=== PATIENT | male | born 1955 | race Caucasian/White ===

== ENCOUNTER 2020-01-19 12:36 | Inpatient (IN) | payer MEDICARE, OTHER ==
[~2020-01-19] VITALS: Ht 175.3 cm; Wt 94.8 kg
[2020-01-19] MEDS ORDERED: HYDR-4384 PO (13:05)
[2020-01-19] MEDS ORDERED: AMLO5TAB9 PO (13:05)
[2020-01-19] MEDS ORDERED: THIA100T74 PO (13:05)
--- NOTE | 2020-01-19 13:12 | NUR ---
Called report to KIRSTEN Bauman in [facility].
--- NOTE | 2020-01-19 14:00 | NUR ---
Admitted a 64 years old patient from ER with suicidal ideation,per report patient called suicide hotline and stated that he want to kill himself with a knife .during face to face interview ,patient is A/O x4 s/p fall last week at home and with dislocated shoulder.patient denies any suicidal ideation now ,he said due to the dislocated shoulder he was in so much pain and called stated that he had SI.patient remains depressed and feels hopeless want looking for help to control shoulder pain.patient able to ambulating and self care.
[2020-01-19] MEDS ORDERED: MAGNESIUM HYDROXIDE 30 ML LIQUID UDC PO PRN (14:15)
[2020-01-19] MEDS ORDERED: BLOOD SUGAR DIAGNOSTIC 1 EACH STRIP VI ONE ×2 (14:15)
[2020-01-19] MEDS ORDERED: CLONAZEPAM 0.5 MG TABLET PO PRN (14:15)
[2020-01-19] MEDS ORDERED: MAG HYDROX/AL HYDROX/SIMETH 30 ML LIQUID UDC PO PRN (14:15)
[2020-01-19] MEDS ORDERED: ACETAMINOPHEN 325 MG TABLET PO PRN (14:15)
[2020-01-19] MEDS ORDERED: TEMAZEPAM 7.5 MG CAPSULE PO PRN (14:15)
[2020-01-19 15:42] VITALS: BP 141/88
[2020-01-19 20:02] VITALS: BP 135/83
[2020-01-19] MEDS ORDERED: IBUPROFEN 200 MG TABLET PO PRN (20:45)
[2020-01-19] MEDS ORDERED: IBUPROFEN 800 MG TABLET ONE (21:44)
--- NOTE | 2020-01-19 23:04 | NUR ---
Pt c/o of R shoulder pain. Called Dr. Roa and ordered ibuprofen + XR of r shoulder. Pt asleep at this time after given ibuprofen.
[2020-01-20] MEDS: HYDROCODONE/APAP 5-325MG TABLET PO PRN ×3 (05:34→18:30)
--- NOTE | 2020-01-20 05:45 | NUR ---
c/o of skin bites in both legs, none in the upper extremities. No itching per pt. Pictures taken, see chart. Pt had shower in am.
--- NOTE | 2020-01-20 07:06 | NUR ---
Pt slept 6.30 hrs.
[2020-01-20 07:12] LABS: BASOPHILS # (AUTO) 0.1 K/uL (0.0-8.0); BASOPHILS % (AUTO) 1.3 % (0.0-2.0); EOSINOPHILS # (AUTO) 0.2 K/uL (0.0-0.7); HEMATOCRIT 41.9 % (36.7-47.1); LYMPHOCYTES % (AUTO) 35.2 % (20.5-51.5); MEAN CORPUSCULAR HEMOGLOBIN 29.3 uug (23.8-33.4); MEAN CORPUSCULAR HGB CONC 34 g/dL (32.5-36.3); MEAN CORPUSCULAR VOLUME 87.7 fL (73.0-96.2); MONOCYTES # (AUTO) 0.5 K/uL (2.0-10.0); MONOCYTES % (AUTO) 8.7 % (0.0-11.0); NEUTROPHILS # (AUTO) 2.9 K/uL (1.8-8.9); NEUTROPHILS % (AUTO) 50.8 % (38.5-71.5); PLATELET COUNT (AUTO) 197 K/uL (152-348); RED BLOOD CELL COUNT(AUTO) 4.77 MIL/uL (4.06-5.63); WHITE BLOOD COUNT (AUTO) 5.8 K/uL (3.6-10.2)
[2020-01-20] MEDS ORDERED: IBUPROFEN 800 MG TABLET PO PRN (07:15)
[2020-01-20 07:31] LABS: BILIRUBIN,DIRECT 0.2 mg/dL (0.0-0.2); MAGNESIUM 1.9 mg/dL (1.8-2.4); PHOSPHOROUS 3.2 mg/dL (2.5-4.9); TOTAL PROTEIN, SERUM 7.3 g/dL (6.4-8.2)
[2020-01-20 07:42] VITALS: BP 161/102
[2020-01-20] MEDS: THIAMINE HCL 100 MG TABLET PO SCH (08:18)
[2020-01-20] MEDS: AMLODIPINE 5 MG TABLET PO SCH (08:19)
[2020-01-20 08:38] LABS: BILIRUBIN,TOTAL 0.9 mg/dL (0.2-1.0); POTASSIUM 3.5 mmol/L (3.5-5.1); TOTAL PROTEIN, SERUM 7.4 g/dL (6.4-8.2)
[2020-01-20 08:43] LABS: THYROID STIMULATING HORMONE 4.107 mIU/mL (0.358-3.740)
[2020-01-20 10:00] VITALS: BP 146/79
[2020-01-20] MEDS ORDERED: LORAZEPAM 1 MG TABLET PO PRN (13:45)
--- NOTE | 2020-01-20 13:47 | NUR ---
patient seen and checked by David APPIAH ,made aware of x-ray result of right shoulder , PRN pain medication offered.
[2020-01-20 15:38] VITALS: BP 98/53
[2020-01-20] MEDS: LITHIUM CARBONATE 300 MG CAPSULE PO SCH ×2 (16:18→20:51)
[2020-01-20] MEDS: buPROPion XL 150 MG TAB.SR.24H PO SCH (16:20)
--- NOTE | 2020-01-20 20:00 | NUR ---
GPS NURSE'S NOTES: RECEIVED PATIENT IN HIS ROOM IN BED. HE IS NOTED AWAKE A/O X 4 ABLE TO AMBULATE WITH STEADY GAIT AND ABLE TO VERBALIZED FEELINGS. MOOD IS LOW AND DEPRESSED, AFFECT IS BLUNTED. UPON INTERVIEW, PATIENT STATED THAT HE FELT OVERWHELM WITH SI D/T HAVING MANY PROBLEMS IN THE PAST AND ETOH ABUSE. HE STATED HE DID NOT WANT TO KILL HIMSELF AND THAT IS WHY HE CALLED 911 BECAUSE HE NEEDED HELP. PATIENT NOTED CRYING A TIME. PATIENT WAS REASSURED AND REDIRECTED. HE IS REASSURED FOR HIS SAFETY. PATIENT IS ABLE TO CFS. V/S STABLE AT THIS TIME. WILL CONTINUE TO MONITOR.
[2020-01-20 20:14] VITALS: BP 123/50
[2020-01-21] MEDS: HYDROCODONE/APAP 5-325MG TABLET PO PRN ×4 (00:47→18:59)
--- NOTE | 2020-01-21 06:55 | NUR ---
PATIENT SLEPT FOR APPROX 5.00 HRS THROUGH THE NIGHT. NORCO WAS GIVEN AT APPROX 0644 FOR SHOULDER PAIN. PATIENT CONTINUE WITH LOW MOOD, AFFECT IS CONGRUENT WITH MOOD. PATIENT IS ABLE TO CFS. WILL CONTINUE TO MONITOR.
[2020-01-21 07:30] VITALS: BP 145/87
[2020-01-21] MEDS: LITHIUM CARBONATE 300 MG CAPSULE PO SCH ×2 (08:52→20:24)
[2020-01-21] MEDS: THIAMINE HCL 100 MG TABLET PO SCH (08:53)
[2020-01-21] MEDS: AMLODIPINE 5 MG TABLET PO SCH (08:53)
[2020-01-21] MEDS: buPROPion XL 150 MG TAB.SR.24H PO SCH (08:54)
--- NOTE | 2020-01-21 12:26 | NUR ---
GPS: PT A/OX2, ABLE TO MAKE NEEDS KNOWN VERBALLY. PT NOTED A BIT CONFUSE OR NEEDY ASKING FOR WHAT HE CAN DO FOR HIS RIGHT ARM. PT WAS ENDORSED BY OUTGOING NURSE PT HISTORY OF FALL AND RIGHT SHOULDER PAIN. WILL CONTINUE TO MONITOR. ALL ROUTINE MEDS GIVEN ORDER, PT COOPERATIVE WILL ALL CARE AT THIS TIME.
--- NOTE | 2020-01-21 15:10 | NUR ---
Splitter Tender: Patient's psychosocial assessment was completed today.
--- NOTE | 2020-01-21 15:18 | NUR ---
Brief Substance Abuse Intervention: Patient was provided with a brief substance abuse intervention and referred to the following substance abuse programs: [facility] Substance Abuse Self-helpline ([phone]); [facility] [address] [place] [address] ([phone]); [facility] [address] [facility] [address] ([phone]); [facility] ([phone]); [facility] ([phone]); [facility] ([phone]); [facility] ([phone]).
[2020-01-21 16:00] VITALS: BP 137/73
[2020-01-21 20:09] VITALS: BP 137/79
--- NOTE | 2020-01-21 20:30 | NUR ---
RECEIVED PATIENT IN THE DAYROOM. HE IS NOTED A/O 4, CALM AND PLEASANT UPON APPROACHED. HE IS ABLE TO VERBALIZED FEELINGS. HE STATED THAT HE CONTINUE HAVING PASSIVE SI, BUT DENIED PLAN. PATIENT IS ABLE TO CFS. HE IS REASSURED FOR HIS SAFETY. WILL CONTINUE TO MONITOR.
[2020-01-22] MEDS: HYDROCODONE/APAP 5-325MG TABLET PO PRN ×4 (01:57→21:24)
--- NOTE | 2020-01-22 06:49 | NUR ---
PATIENT SLEPT FOR APPROX 6.15 HRS THROUGH THE NIGHT. NORCO PO PRN WAS GIVEN AT APPROX 0300. PATIENT CONTINUE HAVING PASSIVE SI WITHOUT SPECIFIC PLAN FOR COMMITTING SUICIDE. PATIENT ABLE TO CFS. WILL CONTINUE TO MONITOR.
[2020-01-22 07:30] VITALS: BP 104/63
[2020-01-22] MEDS: buPROPion XL 150 MG TAB.SR.24H PO SCH (08:43)
[2020-01-22] MEDS: LITHIUM CARBONATE 300 MG CAPSULE PO SCH ×2 (08:43→20:28)
[2020-01-22] MEDS: AMLODIPINE 5 MG TABLET PO SCH (08:45)
[2020-01-22] MEDS: THIAMINE HCL 100 MG TABLET PO SCH (08:46)
--- NOTE | 2020-01-22 10:03 | NUR ---
Gps/Lockstitch Back Maker- Dr Mo Hernandez in to see patient , informed of > pain right shoulder, Per patient " that is why i am here because i have too much pain right shoulder ". Dr Langley( Orthopedic) was called By Dr Hernandez informed of the consult.Limited ROM right shoulder. PRN [place] 1 tab. given po , repositioned for comfort. meds. compliant .
--- NOTE | 2020-01-22 10:37 | NUR ---
SW Note: Received a call from Paige from [facility] Mental Health Case Assessment Management Program for high Risk Clients ([phone]) regarding patient. Paige stated that her job is to make sure patient has aftercare treatment and make sure he follows through. Paige suggested referring the patient to [facility].
--- NOTE | 2020-01-22 13:58 | NUR ---
gps/Iso Coordinator- Copy of the Voluntary advisement given as requested. Complained of pain on his right shoulder, offered motrim informed he can have it q 8 hrs. as needed. Patient verbalized GI. bleed in the past when he took motrin, claimed his Doctor told him not to take motrim . Pain level 6/10 , [facility] per pt.
[2020-01-22 16:00] VITALS: BP 147/84
--- NOTE | 2020-01-22 17:10 | NUR ---
Gps.Experimental Assembler- Attended pm group therapy, compliant with routine meds, making needs known to staff, adequate relief from right shoulder pain.
[2020-01-22 21:07] VITALS: BP 129/79
--- NOTE | 2020-01-22 21:30 | NUR ---
PATIENT RECEIVED IN ROOM AWAKE. PATIENT ALERT/ORIENTED X3. PATIENT COMPLAINT WITH MEDICATION, PAIN TO RIGHT SHOULDER 8/10 PAIN MEDICATION GIVEN ORDERED. PATIENT DENIES SI, WILL CONTINUE TO MONITOR. ADVISED PATIENT TO VERBALIZE NEEDS.SAFE ENVIRONMENT, FRQUENT ROUNDING, AND CLUTTER FREE ENVIRONMENT. BED IN LOWEST POSITION, BED LOCKED,AND BED ALARM ON WHILE IN BED.
[2020-01-23] MEDS: HYDROCODONE/APAP 5-325MG TABLET PO PRN ×4 (03:41→21:54)
[2020-01-23 07:30] VITALS: BP 122/79
[2020-01-23] MEDS: THIAMINE HCL 100 MG TABLET PO SCH (08:32)
[2020-01-23] MEDS: buPROPion XL 150 MG TAB.SR.24H PO SCH (08:32)
[2020-01-23] MEDS: LITHIUM CARBONATE 300 MG CAPSULE PO SCH (08:32)
[2020-01-23] MEDS: AMLODIPINE 5 MG TABLET PO SCH (08:32)
--- NOTE | 2020-01-23 10:48 | NUR ---
Social Work Firearms Report (DOJ): Sheet Metal Assembler And Riveter completed and submitted a DPJ firearms report for 5150 danger to himself certification. A copy of report has been placed in patient chart.
--- NOTE | 2020-01-23 13:00 | NUR ---
Ana/Electronic Induction Hardener-Dr Langley (ortho) in to see patient, recommending MRI , but unable to do. at this time.
--- NOTE | 2020-01-23 15:36 | NUR ---
Social Work Individual Therapy: template worker met with patient for brief counseling to adress patient's substance abuse and low mood. Patient actively participated in the session and was motivated to change behaviors. 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 template worker provided pt with healthier coping mechanisms and discussed options for referrals for treatment once he is ready for discharge. Pt is ambivalent about entering inpatient treatment because he does not know who could take care of his parents when he is gone. template worker validated pts feelings for emotional processing with actively listening.
[2020-01-23 16:00] VITALS: BP 127/73
[2020-01-23 20:28] VITALS: BP 155/84
[2020-01-23] MEDS ORDERED: LITHIUM CARBONATE CR 450 MG TABLET.SA PO SCH (21:00)
[2020-01-23] MEDS ORDERED: LITHIUM CARBONATE 300 MG CAPSULE PO SCH (21:00)
[2020-01-24] MEDS: HYDROCODONE/APAP 5-325MG TABLET PO PRN ×2 (04:24→10:36)
--- NOTE | 2020-01-24 04:31 | NUR ---
GPS: PT A/O 3, UP IN RE-CREATION ROOM WITH PEERS WATCHING TV. PT HAD FEW EPISODE OF IRRITATION TOWARDS ANOTHER PT DUE TO TV CHANNELS CHANGES. WAS ABLE TO CALM WITHOUT EXCESSIVE ARGUMENT. PT INITIALLY REFUSED LITHIUM ROUTINE MEDS OTHER X2. BUT REQUESTED FOR MED LATER AND WAS COMPLIANT. PT ALSO REQUESTED FOR PAIN MEDICATION NORCO 5/325MG AT 2150 AND AT 0425 HOURS. PT NORCO Q/6HRS AND PT C/O RIGHT SHOULDER PAIN TWICE. PT WAS PARTIALLY COOPERATIVE WITH ALL CARE. HEAD COUNT CONTINUE AND MONITOR.
[2020-01-24 07:30] VITALS: BP 121/73
[2020-01-24 08:26] VITALS: BP 121/73
[2020-01-24] MEDS: buPROPion XL 150 MG TAB.SR.24H PO SCH (08:26)
[2020-01-24] MEDS: THIAMINE HCL 100 MG TABLET PO SCH (08:26)
[2020-01-24] MEDS: AMLODIPINE 5 MG TABLET PO SCH (08:26)
[2020-01-24] MEDS ORDERED: LITHIUM CARBONATE 300 MG CAPSULE PO SCH (09:00)
--- NOTE | 2020-01-24 13:45 | NUR ---
Gps/Commercial Credit Portfolio Manager- Patient was well informed of his discharge to medical floor. All belongings given back to patient (cell phone, phone changer, insurance card-wallet and clothes) Report was given to Tammi Degroot . Discharge via wheel chair to 3rd floor assigned room # 323. Mo LYLES was called and informed of dc. to 3rd floor. Patient apparently his birthday today, was greeted by his peers .
[2020-01-24] MEDS ORDERED: MAG355OR18 PO (15:13)
[2020-01-24] MEDS ORDERED: TEMA15CA PO (15:13)
[2020-01-24] MEDS ORDERED: ACET-2154 PO (15:13)
[2020-01-24] MEDS ORDERED: MAGN400O6 PO (15:13)
[2020-01-24] MEDS ORDERED: BUPR-96 PO (15:13)
[2020-01-24] MEDS ORDERED: LORA2ORA5 PO (15:13)
[2020-01-24] MEDS ORDERED: LITH450T2 PO (15:13)
[2020-01-24] MEDS ORDERED: LITH300T3 PO (15:13)
[2020-01-24] MEDS ORDERED: HYDR-3972 PO (15:13)
[2020-01-24] MEDS ORDERED: IBUP-1957 PO (15:13)
== END 2020-01-24 13:56 | disposition short-term general hospital (02) | DRG 885 ==
LOC: ER 12:36 → GPS 13:36
PROVIDERS: ADMIT Psychiatry & Neurology Psychiatry; ATTEND Internal Medicine
DX: F31.30 Bipolar disorder, current episode depressed, mild or moderate severity, unspecified (principal); R45.851 Suicidal ideations; S42.291A Other displaced fracture of upper end of right humerus, initial encounter for closed fracture; F10.20 Alcohol dependence, uncomplicated; F29 Unspecified psychosis not due to a substance or known physiological condition; E66.9 Obesity, unspecified; Z73.6 Limitation of activities due to disability; Z68.30 Body mass index [BMI] 30.0-30.9, adult; M75.51 Bursitis of right shoulder; W19.XXXA Unspecified fall, initial encounter; Y93.9 Activity, unspecified; Y92.009 Unspecified place in unspecified non-institutional (private) residence as the place of occurrence of the external cause
CPT/HCPCS: 36415; 70030-TC; 73030; 73200; 83735; 84100; 84443; 85025; A4663

== ENCOUNTER 2020-01-24 14:20 | Inpatient (IN) | payer MEDICARE, OTHER ==
[~2020-01-24] VITALS: Ht 175.3 cm; Wt 94.8 kg
[~2020-01-24 14:20] MED LIST: AMLO5TAB9 PO; HYDR-4384 PO; THIA100T74 PO
--- NOTE | 2020-01-24 15:00 | NUR ---
Patient arrived on unit via wheelchair, complaints of pain in right shoulder, no signs of distress, no verbalizations of suicidal ideations, vitals: 153/81, 97.8, 82 heart rate, 98% on room air, all needs met, call light in reach, bed locked and in lowest.
[2020-01-24] MEDS ORDERED: MAG355OR18 PO (15:13)
[2020-01-24] MEDS ORDERED: HYDR-3972 PO (15:13)
[2020-01-24] MEDS ORDERED: LITH300T3 PO (15:13)
[2020-01-24] MEDS ORDERED: MAGN400O6 PO (15:13)
[2020-01-24] MEDS ORDERED: LORA2ORA5 PO (15:13)
[2020-01-24] MEDS ORDERED: ACET-2154 PO (15:13)
[2020-01-24] MEDS ORDERED: LITH450T2 PO (15:13)
[2020-01-24] MEDS ORDERED: TEMA15CA PO (15:13)
[2020-01-24] MEDS ORDERED: BUPR-96 PO (15:13)
[2020-01-24] MEDS ORDERED: IBUP-1957 PO (15:13)
[2020-01-24] MEDS ORDERED: ZOLPIDEM 5 MG TABLET PO PRN (15:45)
[2020-01-24] MEDS ORDERED: Z GUARD REMEDY PASTE 57 GM TUBE TOP PRN (15:45)
[2020-01-24] MEDS ORDERED: ACETAMINOPHEN 325 MG TABLET PO PRN (15:45)
[2020-01-24] MEDS ORDERED: MAGNESIUM HYDROXIDE 30 ML LIQUID UDC PO PRN (15:45)
[2020-01-24] MEDS ORDERED: HYDROCODONE/APAP 5-325MG TABLET PO PRN (15:45)
[2020-01-24] MEDS ORDERED: ONDANSETRON 4 MG/2 ML VIAL IV PRN (15:45)
[2020-01-24] MEDS ORDERED: IBUPROFEN 400 MG TABLET PO PRN (16:00)
[2020-01-24 16:40] VITALS: BP 153/81
[2020-01-24] MEDS: HYDROCODONE/APAP 10-325 MG TABLET PO PRN ×2 (17:03→23:06)
[2020-01-24 20:21] VITALS: BP 132/79
[2020-01-24] MEDS: LITHIUM CARBONATE CR 450 MG TABLET.SA PO SCH (21:18)
--- NOTE | 2020-01-24 21:22 | NUR ---
PATIENT RECEIVED IN BED. AAOX3. NO S/S OF ACUTE DISTRESS. V/S STABLE AT THIS TIME. REPORT NO SI/HI AT THIS TIME. WILL CONTINUE TO MONITOR.
[2020-01-25 04:21] VITALS: BP 142/65
[2020-01-25] MEDS: HYDROCODONE/APAP 10-325 MG TABLET PO PRN ×3 (05:13→18:36)
--- NOTE | 2020-01-25 06:32 | NUR ---
TEXTED DR. SUNSHINE FOR MRI APPROVAL.
[2020-01-25 08:00] VITALS: BP 125/79
--- NOTE | 2020-01-25 08:06 | NUR ---
Patient noted watching TV, call light in reach, bed locked and in lowest position,complaints of shoulder pain, no signs of distress noted, all needs met at this time
[2020-01-25] MEDS: LITHIUM CARBONATE 300 MG CAPSULE PO SCH (09:07)
[2020-01-25] MEDS: THIAMINE HCL 100 MG TABLET PO SCH (09:07)
[2020-01-25] MEDS: buPROPion XL 150 MG TAB.SR.24H PO SCH (09:07)
[2020-01-25] MEDS: AMLODIPINE 5 MG TABLET PO SCH (09:13)
--- NOTE | 2020-01-25 09:30 | NUR ---
called Richard re MRI of right shoulder sched- still waiting for clearance- will call us, Mo Hernandez NP informed
[2020-01-25] MEDS: CIPROFLOXACIN 0.3% OPHT DROP 2.5 ML BOTTLE EACHEYE SCH ×3 (10:48→17:56)
[2020-01-25 16:00] VITALS: BP 138/81
--- NOTE | 2020-01-25 16:56 | NUR ---
Patient left at 1500 for MRI, patient returned at 1630 with news that MRI machine was broken at [facility], MRI to be rescheduled at a later time
--- NOTE | 2020-01-25 19:45 | NUR ---
Received patient awake. Patient shows no signs or symptoms of distress at this time. Patient complains of having right shoulder pain but [place] previously given is helping. Bed set to lowest position. Call light within reach. Side rails x2 are up. Will continue to monitor patient.
[2020-01-25 20:38] VITALS: BP 123/60
--- NOTE | 2020-01-25 20:45 | NUR ---
Received report from KIRSTEN Rothman. Patient in bed, awake. Patient denies any acute distress at this time but complains of pain on right shoulder, [place] was given earlier. Will assess pain level again. Vitals are stable. Safety measures in place. Bed low and locked position. Call light within reach. Will continue with the plan of care.
[2020-01-25] MEDS: LITHIUM CARBONATE CR 450 MG TABLET.SA PO SCH (21:30)
[2020-01-26] MEDS: HYDROCODONE/APAP 10-325 MG TABLET PO PRN ×3 (02:03→22:17)
[2020-01-26 06:37] VITALS: BP 102/64
--- NOTE | 2020-01-26 07:00 | NUR ---
Patient slept intermittently throughout the night. Patient is awake and alertx4. Patient denies any acute distress or pain. Vitals are stable. Comfort care and needs attended. Patient compliant with all medications. PRN Pain medication given as requested by patient. Safety measures in place. Will endorse to the oncoming nurse accordingly.
[2020-01-26] MEDS: CIPROFLOXACIN 0.3% OPHT DROP 2.5 ML BOTTLE EACHEYE SCH ×3 (09:37→17:08)
[2020-01-26] MEDS: THIAMINE HCL 100 MG TABLET PO SCH (09:37)
[2020-01-26] MEDS: LITHIUM CARBONATE 300 MG CAPSULE PO SCH (09:37)
[2020-01-26] MEDS: buPROPion XL 150 MG TAB.SR.24H PO SCH (09:37)
[2020-01-26] MEDS: AMLODIPINE 5 MG TABLET PO SCH (09:38)
[2020-01-26 12:00] VITALS: BP 155/77
[2020-01-26 16:00] VITALS: BP 151/84
--- NOTE | 2020-01-26 18:31 | NUR ---
PATIENT CALM AND COMFORTABLE WITH NO SIGN OF DISTRESS ;PATIENT WITH STABLE VITAL SIGNS ; PATIENT TO HAVE MRI IN AM PER JANELLE AT [facility] .
[2020-01-26 20:00] VITALS: BP 132/78
--- NOTE | 2020-01-26 20:40 | NUR ---
Patient in bed awake, alertx4. Patient denies any acute distress or pain. Patient's vitals stable. Safety measures in place. Will continue with the plan of care.
[2020-01-26] MEDS: LITHIUM CARBONATE CR 450 MG TABLET.SA PO SCH (21:00)
[2020-01-27 04:00] VITALS: BP 128/78
[2020-01-27] MEDS: HYDROCODONE/APAP 10-325 MG TABLET PO PRN ×4 (04:24→23:04)
--- NOTE | 2020-01-27 07:06 | NUR ---
Patient slept throughout the night. Patient is awake, denies any acute distress or pain at this time. Patient's vitals stable. Patient was compliant with medication. Patient was given PRN [place] x2 for R shoulder pain. Comfort care and needs attended. Safety measures in place. Bed low and locked in position. Call light within reach. Will endorse to the oncoming nurse accordingly.
[2020-01-27] MEDS: LITHIUM CARBONATE 300 MG CAPSULE PO SCH (08:59)
[2020-01-27] MEDS: buPROPion XL 150 MG TAB.SR.24H PO SCH (08:59)
[2020-01-27] MEDS: THIAMINE HCL 100 MG TABLET PO SCH (08:59)
[2020-01-27] MEDS: CIPROFLOXACIN 0.3% OPHT DROP 2.5 ML BOTTLE EACHEYE SCH ×2 (09:00→17:04)
[2020-01-27] MEDS: AMLODIPINE 5 MG TABLET PO SCH (09:00)
[2020-01-27 16:12] VITALS: BP 134/83
--- NOTE | 2020-01-27 18:45 | NUR ---
patient calm and comfortable with no signs of distress; patient with with stable vital signs.Patient went to MRI and returned in stable condition. Report given to oncoming nurse.
[2020-01-27 20:00] VITALS: BP_SYST 141; BP_SYST 148; BP_DIAS 74; BP_DIAS 92
[2020-01-27] MEDS: LITHIUM CARBONATE CR 450 MG TABLET.SA PO SCH (21:26)
--- NOTE | 2020-01-27 23:00 | NUR ---
received patient watching TV Axox 4 on RA, vital signs stable. No signs or symptoms of acute distress notes. Patient was given PRN [place] x1 for R shoulder pain, effective. Patient on NPO @midnight for surgery tomorrow. Comfort care and needs attended. Safety measures in place. Bed low and locked in position. Call light within reach. Will endorse to the oncoming nurse accordingly.
[2020-01-28] VITALS (7 sets, daily range): BP systolic 111–162; BP diastolic 66–94
[2020-01-28 01:41] LABS: *BILIRUBIN,URIN NEGATIVE (NEGATIVE); *BLOOD, URINE NEGATIVE (NEGATIVE); *CLARITY,URINE CLEAR (CLEAR); *COLOR,URINE YELLOW (YELLOW); *KETONES,URINE NEGATIVE (NEGATIVE); *UROBILINOGEN,URINE 0.2 E.U./dl (NORMAL); LEUKOCYTE ESTERASE ,URINE NEGATIVE (NEGATIVE); NITRITE, URINE NEGATIVE (NEGATIVE); UGLUCOSE NEGATIVE (NEGATIVE)
--- NOTE | 2020-01-28 06:15 | NUR ---
IV 20G on left forearm inserted, intact and patent. All needs attended to, all items within patient reach. will endorse report to AM shift.
[2020-01-28] MEDS ORDERED: MORPHINE SULFATE 2 MG/1 ML DISP.SYRIN IV ONE (06:45)
[2020-01-28 06:46] LABS: BASOPHILS # (AUTO) 0.1 K/uL (0.0-8.0); BASOPHILS % (AUTO) 1.4 % (0.0-2.0); EOSINOPHILS # (AUTO) 0.3 K/uL (0.0-0.7); EOSINOPHILS % (AUTO) 4.2 % (0.0-7.0); HEMATOCRIT 43.3 % (36.7-47.1); HEMOGLOBIN 14.4 g/dL (12.5-16.3); LYMPHOCYTES # (AUTO) 2.6 K/uL (20.0-40.0); LYMPHOCYTES % (AUTO) 33.6 % (20.5-51.5); MEAN CORPUSCULAR HEMOGLOBIN 29.4 uug (23.8-33.4); MEAN CORPUSCULAR HGB CONC 33 g/dL (32.5-36.3); MEAN CORPUSCULAR VOLUME 88.3 fL (73.0-96.2); MONOCYTES # (AUTO) 0.7 K/uL (2.0-10.0); MONOCYTES % (AUTO) 9.1 % (0.0-11.0); NEUTROPHILS % (AUTO) 51.7 % (38.5-71.5); PLATELET COUNT (AUTO) 231 K/uL (152-348); WHITE BLOOD COUNT (AUTO) 7.8 K/uL (3.6-10.2)
[2020-01-28 06:51] LABS: PHOSPHOROUS 4.1 mg/dL (2.5-4.9); POTASSIUM 3.9 mmol/L (3.5-5.1)
--- NOTE | 2020-01-28 07:13 | NUR ---
Patient complaints of pain 9/10 right shoulder. Got order from DR. Berg morphine 2mg IV x1. Administered, effective. Patient slept through the night, no changes, no sudden reports. Vitals stable. Will continue plan of care. Will endorse next shift accordingly.
[2020-01-28] MEDS ORDERED: BUPIVACAINE/EPI PF 0.25% 30 ML VIAL ONE (07:30)
--- NOTE | 2020-01-28 07:45 | NUR ---
Received pt in bed AOx4, able to answer questions appropriately. On RA with no distress or SOB noted at this time. Stated that he has no suicidal ideation. IV on left FA 20g H/L, flushed and patent. Complained of slight pain of right arm. Pt for surgery: repair of right rotator cuff, pt aware. Bed locked in lowest position with siderails 2x up. Will monitor
--- NOTE | 2020-01-28 08:45 | NUR ---
Picked up by surgery personnel
[2020-01-28] MEDS ORDERED: MIDAZOLAM HCL 2 MG/2 ML VIAL ONE (08:51)
[2020-01-28] MEDS ORDERED: HYDROMORPHONE 2 MG/1 ML DISP.SYRIN ONE (08:51)
[2020-01-28] MEDS ORDERED: ROCURONIUM BROMIDE 50 MG/5 ML VIAL ONE (08:51)
[2020-01-28] MEDS: AMLODIPINE 5 MG TABLET PO SCH ×2 (09:00→12:27)
[2020-01-28] MEDS: THIAMINE HCL 100 MG TABLET PO SCH (09:00)
[2020-01-28] MEDS: CIPROFLOXACIN 0.3% OPHT DROP 2.5 ML BOTTLE EACHEYE SCH ×2 (09:00→16:57)
[2020-01-28] MEDS: LITHIUM CARBONATE 300 MG CAPSULE PO SCH (09:00)
[2020-01-28] MEDS: buPROPion XL 150 MG TAB.SR.24H PO SCH (09:00)
--- NOTE | 2020-01-28 09:27 | NUR ---
Pt currently in surgery, 9AM meds not given
[2020-01-28] MEDS ORDERED: DESFLURANE ANESTHESIA GAS 240 ML BOTTLE ONE (09:36)
[2020-01-28] MEDS ORDERED: SEVOFLURANE 250 ML BOTTLE ONE (09:38)
[2020-01-28] MEDS ORDERED: POLYMYXIN B SULFATE 500,000 UNITS, BACITRACIN 50,000 UNITS, NORMAL SALINE 20 ML MC ONE ×3 (09:45)
[2020-01-28] MEDS ORDERED: VANCOMYCIN 1000 MG VIAL ONE (10:30)
[2020-01-28] MEDS ORDERED: FENTANYL CITRATE 100 MCG/2 ML AMPUL ONE (11:05)
[2020-01-28] MEDS ORDERED: HYDROMORPHONE 1 MG/1 ML DISP.SYRIN ONE (11:34)
[2020-01-28] MEDS ORDERED: ONDANSETRON 4 MG/2 ML VIAL ONE (11:39)
--- NOTE | 2020-01-28 12:05 | NUR ---
Pt arrived in from surgery. AOx4. On O2 @ 2L, no SOB or distress noted. Right arm sling in place, Mepilex on surgery site. Complaining of pain on right arm. Per Dr. Langley, can eat and go back to regular diet. Ate lunch with no signs of aspiration. IV in left FA 22g flushed and patent, will start D5 1/2 NS 20KCL @ 75cc. DVT pumps in place. Bed locked in lowest position with siderails 2x up. Call light within reach. Will monitor
[2020-01-28] MEDS: POTASSIUM CHLORIDE 20 MEQ in IV D5 1/2 NS 1000 ML 1,000 ML IV PRN (12:33)
[2020-01-28] MEDS: HYDROCODONE/APAP 10-325 MG TABLET PO PRN (15:05)
[2020-01-28] MEDS: CEFAZOLIN 1 G in IV DEXTROSE 5% 50 ML IV SCH (16:56)
[2020-01-28] MEDS: MORPHINE SULFATE 4 MG/1 ML DISP.SYRIN IV PRN ×2 (16:56→20:24)
--- NOTE | 2020-01-28 19:01 | NUR ---
END OF SHIFT: Pt in bed asleep but arousable to name and touch. On RA with no SOB or distress noted. IV on left FA 22g infusing D5 1/2 NS 20KCl @ 75cc. Pain is better from morphine per pt. Last BP 152/90, 95% RA. Right sling in place, Mepilex on surgery site, clean and dry. Bed locked in lowest position with siderails 2x up. Call light and phone within reach. DVT pumps in place. Will endorse
--- NOTE | 2020-01-28 19:22 | NUR ---
No suicidal ideation at this time.
[2020-01-28] MEDS: LITHIUM CARBONATE CR 450 MG TABLET.SA PO SCH (20:27)
--- NOTE | 2020-01-28 21:33 | NUR ---
S/P right rotator cuff repair by Dr Langley. Right shoulder dressing intact wit mepilex in placed. Right arm sling in placed. VSS. Needs attended. Voiding in urinal. IVF's infusing well via left arm heplock. Medicated with Morphine 4mg IV for right shoulder pain. Will monitor for relief. Voiding well in the urinal. Compliant with meds. No acute distress noted. No signs of suicidal ideation noted. Kept comfortable.
[2020-01-29] MEDS: CEFAZOLIN 1 G in IV DEXTROSE 5% 50 ML IV SCH (00:30)
[2020-01-29] MEDS: MORPHINE SULFATE 4 MG/1 ML DISP.SYRIN IV PRN ×5 (01:46→17:36)
[2020-01-29] MEDS: POTASSIUM CHLORIDE 20 MEQ in IV D5 1/2 NS 1000 ML 1,000 ML IV PRN ×2 (01:47→16:01)
[2020-01-29 04:18] VITALS: BP 139/69
--- NOTE | 2020-01-29 06:38 | NUR ---
End of shift notes: patient slept well. Medicated for pain as needed for right shoulder. Right arm sling in placed. IVF's infusing well. IV ABT given as scheduled with no side efffects noted. Voiding freely. VSS.
[2020-01-29 06:42] LABS: BASOPHILS # (AUTO) 0.1 K/uL (0.0-8.0); BASOPHILS % (AUTO) 0.6 % (0.0-2.0); EOSINOPHILS # (AUTO) 0.1 K/uL (0.0-0.7); EOSINOPHILS % (AUTO) 1.1 % (0.0-7.0); HEMATOCRIT 41.2 % (36.7-47.1); HEMOGLOBIN 13.9 g/dL (12.5-16.3); LYMPHOCYTES # (AUTO) 2.5 K/uL (20.0-40.0); LYMPHOCYTES % (AUTO) 23.7 % (20.5-51.5); MEAN CORPUSCULAR HEMOGLOBIN 29.6 uug (23.8-33.4); MEAN CORPUSCULAR HGB CONC 34 g/dL (32.5-36.3); MEAN CORPUSCULAR VOLUME 87.8 fL (73.0-96.2); MONOCYTES # (AUTO) 1.1 K/uL (2.0-10.0); MONOCYTES % (AUTO) 10.8 % (0.0-11.0); NEUTROPHILS # (AUTO) 6.7 K/uL (1.8-8.9); NEUTROPHILS % (AUTO) 63.8 % (38.5-71.5); PLATELET COUNT (AUTO) 219 K/uL (152-348)
[2020-01-29 06:47] LABS: CREATININE 1.1 mg/dL (0.6-1.3); MAGNESIUM 1.8 mg/dL (1.8-2.4); PHOSPHOROUS 3.4 mg/dL (2.5-4.9); POTASSIUM 3.6 mmol/L (3.5-5.1)
[2020-01-29 08:16] LABS: WHITE BLOOD COUNT (AUTO) 10.6 K/uL (3.6-10.2)
[2020-01-29 08:36] VITALS: BP 157/80
[2020-01-29] MEDS: buPROPion XL 150 MG TAB.SR.24H PO SCH (09:08)
[2020-01-29] MEDS: THIAMINE HCL 100 MG TABLET PO SCH (09:08)
[2020-01-29] MEDS: CIPROFLOXACIN 0.3% OPHT DROP 2.5 ML BOTTLE EACHEYE SCH ×2 (09:08→17:14)
[2020-01-29] MEDS: AMLODIPINE 5 MG TABLET PO SCH (09:08)
[2020-01-29] MEDS: LITHIUM CARBONATE 300 MG CAPSULE PO SCH (09:08)
--- NOTE | 2020-01-29 14:48 | NUR ---
Received patient awake in bed in stable condition. Patient continue therapy for S/P Right shoulder rotator cuff SX. Patient continue pain management if needed. Patient morphine 1ml IV PRN given for right shoulder pain. Patient continue D5 1/2 with potassium 20meq for hypokalemia. Patient for possible discharge to MHU. will continue monitor
[2020-01-29 16:03] VITALS: BP 151/83
[2020-01-29] MEDS: HYDROCODONE/APAP 10-325 MG TABLET PO PRN (17:41)
--- NOTE | 2020-01-29 17:47 | NUR ---
Patient D5 1/2 1000 ml with potassium 20meq discontinue by TD Corea. Patient eating 90-100% meals. Latest laboratory K 3.6.
--- NOTE | 2020-01-29 17:52 | NUR ---
Patient ortho SX trying to reach by phone call regarding clearance to transfer back to MHU for S/P repair of right rotator cuff. Awaiting for call back. will endorse
[2020-01-29 20:00] VITALS: BP 137/83
[2020-01-29] MEDS: LITHIUM CARBONATE CR 450 MG TABLET.SA PO SCH (20:13)
--- NOTE | 2020-01-29 20:43 | NUR ---
Received pt resting in bed and watching tv. AAO x4. No acute distress noted. No c/o pain/ discomfort at this time. Due med given as ordered. Snacks provided as requested. Denies SI. Right arm sling in place. Safety measures maintained. Will continue to monitor.
[2020-01-30] MEDS: HYDROCODONE/APAP 10-325 MG TABLET PO PRN ×3 (00:17→12:45)
[2020-01-30 04:00] VITALS: BP 121/73
[2020-01-30 08:28] VITALS: BP 145/88
[2020-01-30] MEDS: LITHIUM CARBONATE 300 MG CAPSULE PO SCH (08:30)
[2020-01-30] MEDS: buPROPion XL 150 MG TAB.SR.24H PO SCH (08:30)
[2020-01-30] MEDS: THIAMINE HCL 100 MG TABLET PO SCH (08:30)
[2020-01-30 08:31] VITALS: BP 145/88
[2020-01-30] MEDS: AMLODIPINE 5 MG TABLET PO SCH (08:31)
[2020-01-30] MEDS: CIPROFLOXACIN 0.3% OPHT DROP 2.5 ML BOTTLE EACHEYE SCH (08:33)
--- NOTE | 2020-01-30 11:11 | NUR ---
Received patient awake in bed in stable condition. Patient continue pain management for S/P repair rotator cuff. Patient clear surgically for discharge to home today. will continue monitor
[2020-01-30] MEDS ORDERED: HYDR-4384 PO (11:34)
[2020-01-30] MEDS ORDERED: CIPR2.5D11 EACHEYE (11:34)
--- NOTE | 2020-01-30 11:45 | NUR ---
Patient will be discharge to home with home health care in stable condition. Patient will be potato picker by sister via private transport. Patient ortho BRIDGET, MD Shivam kruger for discharge. Patient for FF UP in a week for S/P right rotate cuff. TD Corea aware. Addendum: 01/30/20 at 1204 by WILLARD JIN RN RN As per MD Lagnley order, Patient no range of motion exercises and no weight bearing as of this time.
--- NOTE | 2020-01-30 13:10 | NUR ---
Patient refuse to take picture of S/P wound right repair of rotator cuff.
--- NOTE | 2020-01-30 13:42 | NUR ---
Patient discharge around 140pm in stable condition via private transport. Patient assisted to lobby with staff. Refuse to use wheelchair. supervisor show operations by sister. Patient advise to FF UP with ortho surgeon and psychiatrist and primary physician. Discharge summary, medication prescription and instruction given to patient, verbalize understanding. Patient is thankful for the care given.
[2020-01-30] MEDS ORDERED: VANCOMYCIN 1000 MG VIAL IV ONE (13:44)
[2020-01-30] MEDS ORDERED: LIDOCAINE-MPF 2% 5 ML VIAL IJ ONE (13:44)
[2020-01-30] MEDS ORDERED: GLYCOPYRROLATE 0.2 MG/ML VIAL IJ ONE (13:44)
[2020-01-30] MEDS ORDERED: BUPIVACAINE/EPI PF 0.25% 30 ML VIAL IJ ONE (13:44)
[2020-01-30] MEDS ORDERED: IV NORMAL SALINE 1000 ML BAG IV ONE (13:44)
[2020-01-30] MEDS ORDERED: NEOSTIGMINE METHYLSULFATE 10 MG/10 ML VIAL IM ONE (13:44)
[2020-01-30] MEDS ORDERED: PROPOFOL 200 MG/20 ML BOTTLE IV ONE (13:44)
[2020-01-30] MEDS ORDERED: ONDANSETRON 4 MG/2 ML VIAL IV ONE (13:44)
[2020-01-30] MEDS ORDERED: DEXAMETHASONE SOD PHOSPHATE 4 MG INJ IV ONE (13:44)
[2020-01-30] MEDS ORDERED: SEVOFLURANE 250 ML BOTTLE IH ONE (13:44)
[2020-01-30] MEDS ORDERED: CEFAZOLIN 1 G VIAL IM ONE (13:44)
== END 2020-01-30 13:45 | disposition home health service (06) | DRG 501 ==
LOC: MEDSURG3 14:20
PROVIDERS: ADMIT Nurse Practitioner Acute Care; ATTEND Registered Nurse
PROC: 0RQJ4ZZ Repair Right Shoulder Joint, Percutaneous Endoscopic Approach (ICD-10-PCS; principal; 2020-01-28)
PROC: 0RNJ0ZZ Release Right Shoulder Joint, Open Approach (ICD-10-PCS; 2020-01-28)
PROC: 0MB10ZZ Excision of Right Shoulder Bursa and Ligament, Open Approach (ICD-10-PCS; 2020-01-28)
PROC: 0LQ10ZZ Repair Right Shoulder Tendon, Open Approach (ICD-10-PCS; 2020-01-28)
DX: M25.311 Other instability, right shoulder (principal); F31.30 Bipolar disorder, current episode depressed, mild or moderate severity, unspecified; W19.XXXA Unspecified fall, initial encounter; X58.XXXA Exposure to other specified factors, initial encounter; E66.9 Obesity, unspecified; E78.5 Hyperlipidemia, unspecified; F10.20 Alcohol dependence, uncomplicated; H10.9 Unspecified conjunctivitis; I10 Essential (primary) hypertension; Z68.30 Body mass index [BMI] 30.0-30.9, adult; S46.011A Strain of muscle(s) and tendon(s) of the rotator cuff of right shoulder, initial encounter; Y93.9 Activity, unspecified; Y92.009 Unspecified place in unspecified non-institutional (private) residence as the place of occurrence of the external cause; M75.51 Bursitis of right shoulder; Y90.9 Presence of alcohol in blood, level not specified
CPT/HCPCS: 36415; 70030-TC; 71045; 73221; 83735; 84100; 85025; 93005; A4649; A4663; C1713; G0378; J0690; J1100; J1170; J2250; J2270; J2405; J2710; J3010; J3370; J3480; J3490; J7030; J7060

== ENCOUNTER 2020-02-04 15:43 | Inpatient (IN) | payer MEDICARE, OTHER ==
[~2020-02-04] VITALS: Ht 175.3 cm; Wt 96.2 kg
[~2020-02-04 15:43] MED LIST changes: +ACET-2154 PO; +BUPR-96 PO; +CIPR2.5D11 EACHEYE; +LITH300T3 PO; +LITH450T2 PO; +TEMA15CA PO
[2020-02-04] MEDS ORDERED: CHLORDIAZEPOXIDE PO (16:11)
[2020-02-04] MEDS ORDERED: MULT-594 PO (16:11)
[2020-02-04] MEDS ORDERED: ONDA4TAB11 PO (16:11)
[2020-02-04] MEDS ORDERED: FOLIC ACID PO (16:11)
[2020-02-04] MEDS ORDERED: LORA2TAB95 PO (16:11)
--- NOTE | 2020-02-04 16:28 | NUR ---
Patient is for medical clearance@this time for [facility] mental health unit admission
[2020-02-04 16:31] LABS: BASOPHILS # (AUTO) 0.1 K/uL (0.0-8.0); BASOPHILS % (AUTO) 1.6 % (0.0-2.0); EOSINOPHILS # (AUTO) 0.2 K/uL (0.0-0.7); EOSINOPHILS % (AUTO) 2.2 % (0.0-7.0); HEMATOCRIT 40.1 % (36.7-47.1); HEMOGLOBIN 13.5 g/dL (12.5-16.3); LYMPHOCYTES # (AUTO) 2.2 K/uL (20.0-40.0); LYMPHOCYTES % (AUTO) 23.5 % (20.5-51.5); MEAN CORPUSCULAR HEMOGLOBIN 29.4 uug (23.8-33.4); MEAN CORPUSCULAR HGB CONC 34 g/dL (32.5-36.3); MEAN CORPUSCULAR VOLUME 87.2 fL (73.0-96.2); MONOCYTES # (AUTO) 0.9 K/uL (2.0-10.0); MONOCYTES % (AUTO) 9.4 % (0.0-11.0); NEUTROPHILS # (AUTO) 5.8 K/uL (1.8-8.9); NEUTROPHILS % (AUTO) 63.3 % (38.5-71.5); PLATELET COUNT (AUTO) 328 K/uL (152-348); WHITE BLOOD COUNT (AUTO) 9.2 K/uL (3.6-10.2)
[2020-02-04 16:42] LABS: ALANINE AMINOTRANSFERASE 25 U/L (16-63); ALKALINE PHOSPHATASE 82 U/L (50-136); ASPARTATE AMINOTRANSFERASE 16 U/L (15-37); BILIRUBIN,DIRECT 0.1 mg/dL (0.0-0.2); BILIRUBIN,TOTAL 0.4 mg/dL (0.2-1.0); CARBON DIOXIDE 30 mmol/L (21-32); CHLORIDE 103 mmol/L (98-107); GLUCOSE 101 mg/dL (74-106); MAGNESIUM 1.6 mg/dL (1.8-2.4); POTASSIUM 3.7 mmol/L (3.5-5.1); TOTAL PROTEIN, SERUM 7.1 g/dL (6.4-8.2); UREA NITROGEN, BLOOD 10 mg/dL (7-18)
[2020-02-04 16:43] LABS: ETHANOL < 3 MG/DL (0-0)
[2020-02-04] MEDS ORDERED: MAGNESIUM OXIDE 400 MG TABLET PO ONE (17:00)
--- NOTE | 2020-02-04 17:08 | NUR ---
Medically cleared by Dr Moralez.
--- NOTE | 2020-02-04 17:09 | NUR ---
[place] provided with juice while waiting for admission papers and hot dinner tray.
[2020-02-04 17:30] VITALS: BP 179/110
[2020-02-04] MEDS ORDERED: CLONAZEPAM 0.5 MG TABLET PO SCH (17:30)
[2020-02-04] MEDS ORDERED: TEMAZEPAM 7.5 MG CAPSULE PO PRN (17:30)
[2020-02-04] MEDS ORDERED: MAG HYDROX/AL HYDROX/SIMETH 30 ML LIQUID UDC PO PRN (17:30)
[2020-02-04] MEDS ORDERED: MAGNESIUM HYDROXIDE 30 ML LIQUID UDC PO PRN (17:30)
--- NOTE | 2020-02-04 18:00 | NUR ---
Patient received from ER on Wheelchair. Pt is calm and cooperative. Per hold pt stated that he wanted to jump in front of the train. Stressors : substance abuse, anniversary of friend's . Upon face to face evaluation, patient is calm, denies s.i. Pt stated that he had an argument with his sister and he said that he is in so much pain in his shoulder that he would jump in front of the train to end the pain, but he did not mean to say that he wanted to kill himself. Pt contracts for safety. Pt has 8 stitches on his right shoulder due to the surgery on 01/30/2020. Pt stated that he has been drinking half a pint of Sonal every day for the last 6 days. No sweating noted, mild tremmors present, no blurry vision, pt denies VH, AH. Dr. Ba and dr. Busby were notified. Attempted to notify patient's sister, but there was not answer, left a message. Pt was cooperative with admission process.
--- NOTE | 2020-02-04 19:50 | NUR ---
resident programs assistant report that patients blood pressure is 179/104. Rechecked bp it was 151/88. Patient complained of a pain level of 8. Provided 650 mg of acetaminophen PRN PO. Will continue to monitor.
[2020-02-04] MEDS: ACETAMINOPHEN 325 MG TABLET PO PRN (19:52)
[2020-02-04 20:09] VITALS: BP 179/104
[2020-02-04] MEDS ORDERED: LORAZEPAM 1 MG TABLET PO PRN (21:00)
[2020-02-04] MEDS ORDERED: CLONIDINE HCL 0.1 MG TABLET PO PRN (21:00)
[2020-02-05 07:30] VITALS: BP 161/90
[2020-02-05] MEDS: MULTIVITAMINS,THERAPEUTIC TABLET PO SCH (08:05)
[2020-02-05] MEDS ORDERED: CLONAZEPAM 0.5 MG TABLET PO PRN (08:05)
[2020-02-05] MEDS: ACETAMINOPHEN 325 MG TABLET PO PRN ×3 (08:05→21:38)
[2020-02-05] MEDS: FOLIC ACID 1 MG TABLET PO SCH (08:05)
[2020-02-05] MEDS: THIAMINE HCL 100 MG TABLET PO SCH (08:05)
[2020-02-05 08:16] LABS: THYROID STIMULATING HORMONE 1.614 mIU/mL (0.358-3.740)
[2020-02-05 08:22] LABS: BASOPHILS # (AUTO) 0.1 K/uL (0.0-8.0); BASOPHILS % (AUTO) 2.3 % (0.0-2.0); EOSINOPHILS # (AUTO) 0.2 K/uL (0.0-0.7); EOSINOPHILS % (AUTO) 2.7 % (0.0-7.0); LYMPHOCYTES # (AUTO) 1.9 K/uL (20.0-40.0); LYMPHOCYTES % (AUTO) 30.8 % (20.5-51.5); MEAN CORPUSCULAR HEMOGLOBIN 30.5 uug (23.8-33.4); MEAN CORPUSCULAR HGB CONC 35 g/dL (32.5-36.3); MEAN CORPUSCULAR VOLUME 86.9 fL (73.0-96.2); MONOCYTES # (AUTO) 0.5 K/uL (2.0-10.0); MONOCYTES % (AUTO) 8.8 % (0.0-11.0); NEUTROPHILS # (AUTO) 3.4 K/uL (1.8-8.9); NEUTROPHILS % (AUTO) 55.4 % (38.5-71.5); PLATELET COUNT (AUTO) 452 K/uL (152-348); WHITE BLOOD COUNT (AUTO) 6.2 K/uL (3.6-10.2)
[2020-02-05 08:35] LABS: BILIRUBIN,TOTAL 0.5 mg/dL (0.2-1.0); CREATININE 0.9 mg/dL (0.6-1.3); MAGNESIUM 1.9 mg/dL (1.8-2.4); PHOSPHOROUS 3.9 mg/dL (2.5-4.9)
[2020-02-05] MEDS ORDERED: METOPROLOL TARTRATE 25 MG TABLET PO SCH (09:45)
--- NOTE | 2020-02-05 11:10 | NUR ---
DAJUAN Initial Discharge Note: The patient currently resides with his parents at [address] [place] [address]. The patient stated that he would like to return home once he is discharged from the hospital. DAJUAN will continue to work with patient, family, and MD to ensure a safe and proper discharge plan.
--- NOTE | 2020-02-05 11:15 | NUR ---
Social Work Firearms Report (DOJ): Hospice/Home Health Aide completed and submitted a DPJ firearms report for 5150 danger to self certification. A copy of report has been placed in patient chart.
--- NOTE | 2020-02-05 11:35 | NUR ---
DAJUAN Coordination of Care: DAJUAN faxed patient's referral to [facility] for Intensive Outpatient Program attention to Konrad Michele (ph:[phone] ext. [phone]; fax: [phone]) and left a voicemail for a return call. Addendum: 02/05/20 at 1606 by LOGAN RICKS Received a call back from Konrad Michele who stated that they can accept the patient for IOP upon discharge for outpatient therapy and psychiatry services for alcohol abuse and mental health.
[2020-02-05] MEDS: buPROPion XL 150 MG TAB.SR.24H PO SCH (12:49)
[2020-02-05] MEDS: LITHIUM CARBONATE 300 MG CAPSULE PO SCH (12:49)
--- NOTE | 2020-02-05 15:58 | NUR ---
Telephone report given to Nixon Sanford. Patient will be taken up to room 305. Pt. AAOX4. vitals stable, medicated for pain with tylenol as requested. Patient will be wheel up by Susan ramos.
--- NOTE | 2020-02-05 16:08 | NUR ---
TRANSFERRED FROM PSYCH UNIT AN OVERFLOW VIA WHEELCHAIR ACCOMPANIED BY SITTER,AWAKE ALERT AND ORIENTED X3, FOLLOWS COMMAND AND ANSWERS QUESTIONS APPROPRIATELY. CLOSELY MONITORED FOR SAFETY.
--- NOTE | 2020-02-05 19:00 | NUR ---
RECD PT IN BED,RESTING QUIETLY, ALERT AND ORIENTED X3, VERBALLY RESPONSIVE, NEEDS ATTENDED TO,1:1 SITTER AT BEDSIDE.ON 72 HOUR HOLD TILL TOMORROW [id number].
[2020-02-05 20:00] VITALS: BP 129/74
[2020-02-05] MEDS ORDERED: LITHIUM CARBONATE 300 MG TABLET.SA PO SCH (21:00)
[2020-02-05] MEDS: METOPROLOL TARTRATE 50 MG TABLET PO SCH (21:37)
[2020-02-05] MEDS: LITHIUM CARBONATE CR 450 MG TABLET.SA PO SCH (21:37)
--- NOTE | 2020-02-05 21:38 | NUR ---
COMPLAINED OF HEADACHE,TYLENOL 650 MG PO GIVEN.FLUIDS TAKEN WELL.
[2020-02-05] MEDS: CLONAZEPAM 1 MG TABLET PO PRN (22:40)
--- NOTE | 2020-02-05 22:40 | NUR ---
HEADACHE RELIEVED, BUT PT IS GETTING AGITATED BECAUSE HE CAN RELAX, KLONOPIN GIVEN ORDERED.
--- NOTE | 2020-02-06 02:17 | NUR ---
MONITORED FOR SAFETY.KEPT DRY AND CLEAN.
--- NOTE | 2020-02-06 03:08 | NUR ---
RECEIVED PATIENT AWAKE IN BED. A/O X4. NO C/O PAIN AT THIS TIME. SUTURES NOTED TO RIGHT SHOULDER, SUTURES INTACT. VSS. CALL LIGHT IN REACH. ALL NEEDS ATTENDED. WILL CONTINUE TO MONITOR AND ASSESS. Addendum: 02/07/20 at 0311 by WILLARD COOPER LVN ERROR PLEASE DISREGARD.
[2020-02-06 04:00] VITALS: BP 123/73
--- NOTE | 2020-02-06 05:55 | NUR ---
SLEPT AT LONG INTERVALS, NOTHING UNUSUAL NOTED.
[2020-02-06] MEDS: ACETAMINOPHEN 325 MG TABLET PO PRN (06:19)
--- NOTE | 2020-02-06 06:20 | NUR ---
UP TO BR, VOIDED FREELY WELL, REQUESTED TYLENOL FOR GENERALIZED PAIN,GIVEN 2 325 MG TYLENOL, .SLEPT 7 HOURS ,
[2020-02-06] MEDS: CLONAZEPAM 1 MG TABLET PO PRN ×2 (07:21→15:17)
--- NOTE | 2020-02-06 08:00 | NUR ---
awake, alert and oriented, denies of suicidal ideation, explained plan of care, verbalized understanding, states feeling calmer now after Klonopin given earlier, on 1:1 sitter on 5150 hold, safety and comfort measures maintained
[2020-02-06 08:11] VITALS: BP 128/82
[2020-02-06] MEDS: FOLIC ACID 1 MG TABLET PO SCH (08:16)
[2020-02-06] MEDS: MULTIVITAMINS,THERAPEUTIC TABLET PO SCH (08:16)
[2020-02-06] MEDS: THIAMINE HCL 100 MG TABLET PO SCH (08:16)
[2020-02-06] MEDS: LITHIUM CARBONATE 300 MG CAPSULE PO SCH (08:17)
[2020-02-06] MEDS: buPROPion XL 150 MG TAB.SR.24H PO SCH (08:17)
[2020-02-06] MEDS: METOPROLOL TARTRATE 50 MG TABLET PO SCH ×2 (08:18→20:15)
--- NOTE | 2020-02-06 08:36 | NUR ---
ate good breakfast and took all of his meds, right shoulder incision site with sutures CDI, placed pillow under for support, cooperative and conversant
[2020-02-06 11:47] VITALS: BP 133/76
[2020-02-06] MEDS: HYDROCODONE/APAP 5-325MG TABLET PO PRN ×3 (12:18→23:25)
--- NOTE | 2020-02-06 12:18 | NUR ---
medicated with [place] for c/o right shoulder incisional site pain 03/29
[2020-02-06 14:21] VITALS: BP 118/65
--- NOTE | 2020-02-06 15:26 | NUR ---
Floor Cashier Individual Therapy: horticulture worker met with pt for brief counseling to address patient's substance abuse. Patient presents with appropriate mood and congruent affect. Patient was happy to see this documentation writer and shared some concerns about his pain medication. horticulture worker discussed [facility] IOP with the patient. PT shared that he is looking forward to receiving support upon discharge and continuing to get treatment. This documentation writer explored alternate coping skills with the patient other than substance use and patient was able to analyze and share some ideas such as; taking on a hobby, music, spending more time with his sons. Patient presented to have better insight and judgement. SW encouraged patient to continue to explore alternate coping skills and share them with this documentation writer.
--- NOTE | 2020-02-06 15:29 | NUR ---
states pain on right shoulder relieved but c/o of anxiety, pt resting in bed watching tv, Klonopin given ambulates as needed, all needs attended, status changed to voluntary
[2020-02-06 17:00] VITALS: BP 129/78
--- NOTE | 2020-02-06 18:16 | NUR ---
ate 100% of dinner, states has pain on the right shoulder 03/29, medicated kirstie Georges i tab a ordered prn, all needs attended and met, safety and comfort measures maintained, call light within reach
[2020-02-06 20:00] VITALS: BP_SYST 120; BP_SYST 125; BP_DIAS 75; BP_DIAS 81
--- NOTE | 2020-02-06 20:00 | NUR ---
RECEIVED PATIENT AWAKE IN BED. A/O X4. NO C/O PAIN AT THIS TIME. SUTURES NOTED TO RIGHT SHOULDER, SUTURES INTACT. VSS. CALL LIGHT IN REACH. ALL NEEDS ATTENDED. WILL CONTINUE TO MONITOR AND ASSESS.
[2020-02-06] MEDS: LITHIUM CARBONATE CR 450 MG TABLET.SA PO SCH (20:15)
[2020-02-07] MEDS: HYDROCODONE/APAP 5-325MG TABLET PO PRN ×3 (05:29→17:52)
--- NOTE | 2020-02-07 06:13 | NUR ---
PATIENT ALERT ORIENTED, SLEPT MOST OF THE NIGHT 7 HRS. PATIENT CONTINUE ON PAIN MANAGEMENT DUE TO R SHOULDER SURGERY. PATIENT COMPLAINING OF ANXIETY, WILL MEDICATE FOR ANXIETY ORDERED. PATIENT CONTINENT, STAYED IN HIS ROOM, CONT TO MONITOR.
[2020-02-07] MEDS: CLONAZEPAM 1 MG TABLET PO PRN ×3 (06:23→20:04)
--- NOTE | 2020-02-07 09:15 | NUR ---
PATIENT REFUSED HIS DIET ORDERED WANTS REGULAR DIET SENT A MESSAGE FOR DR TOLEDO AWAITING FOR ORDERS.
[2020-02-07] MEDS: METOPROLOL TARTRATE 50 MG TABLET PO SCH ×2 (09:18→20:11)
[2020-02-07] MEDS: buPROPion XL 150 MG TAB.SR.24H PO SCH (09:19)
[2020-02-07] MEDS: FOLIC ACID 1 MG TABLET PO SCH (09:19)
[2020-02-07] MEDS: LITHIUM CARBONATE 300 MG CAPSULE PO SCH (09:19)
[2020-02-07] MEDS: THIAMINE HCL 100 MG TABLET PO SCH (09:19)
[2020-02-07] MEDS: MULTIVITAMINS,THERAPEUTIC TABLET PO SCH (09:19)
--- NOTE | 2020-02-07 10:02 | NUR ---
DR TOLEDO HERE AND AWARE THAT PATIENT HAS BEEN REFUSING HIS CARDIAC DIET ORDERED PREFERS REGULAR DIET AND HE STATED OKAY FOR REGULAR DIET AT THIS TIME.
[2020-02-07 10:17] VITALS: BP 127/80
--- NOTE | 2020-02-07 12:00 | NUR ---
STATED HAS PAIN RIGHT SHOULDER MEDICATED WITH NORCO ORDERED INCISION WITH SUTURES INTACT NO DRAINAGE.
[2020-02-07 16:23] VITALS: BP 137/84
--- NOTE | 2020-02-07 18:12 | NUR ---
PATIENT REQUESTED FOR KLONOPIN FOR ANXIETY MEDICATED ORDERED MADE COMFORTABLE WILL CONTINUE TO OBSERVE AND PROVIDE SAFE AND THERAPEUTIC ENVIRONMENT AT ALL TIMES
--- NOTE | 2020-02-07 19:50 | NUR ---
Received patient appears asleep. No s/s of respiratory distress noted. Safety measures and fall precaution maintained. Continue care as planned.
[2020-02-07 20:00] VITALS: BP 126/76
[2020-02-07] MEDS: LITHIUM CARBONATE CR 450 MG TABLET.SA PO SCH (20:05)
[2020-02-08] MEDS: HYDROCODONE/APAP 5-325MG TABLET PO PRN ×4 (00:57→17:57)
[2020-02-08 04:59] VITALS: BP 120/76
--- NOTE | 2020-02-08 05:56 | NUR ---
Shift End Report: VS stable. Medicated twice for right shoulder pain with help and Klonopin for anxiety. Slept in between care. Ambulatory to the bathroom. No fall/injury. No suicidal ideation presented, very cooperative, pleasant and calm. All needs attended and met. No significant event reported all night. Continue care as planned.
[2020-02-08] MEDS: CLONAZEPAM 1 MG TABLET PO PRN ×3 (06:59→19:50)
[2020-02-08 08:00] VITALS: BP 120/85
--- NOTE | 2020-02-08 08:00 | NUR ---
Received pt in bed asleep but arousable to name and touch. No suicidal ideations at the moment. On RA with no SOB or distress noted at this time. Incision with stitches on right shoulder, clean, slightly pink due to pt scratching it. Educated pt not to unnecessarily touch or scratch incision site, verbalized understanding. Bed locked in lowest position with siderails 2x up. Will initiate suicidal precaution.
[2020-02-08] MEDS: THIAMINE HCL 100 MG TABLET PO SCH (09:01)
[2020-02-08] MEDS: MULTIVITAMINS,THERAPEUTIC TABLET PO SCH (09:01)
[2020-02-08] MEDS: METOPROLOL TARTRATE 50 MG TABLET PO SCH ×2 (09:01→21:04)
[2020-02-08] MEDS: buPROPion XL 150 MG TAB.SR.24H PO SCH (09:06)
[2020-02-08] MEDS: FOLIC ACID 1 MG TABLET PO SCH (09:06)
[2020-02-08] MEDS: LITHIUM CARBONATE 300 MG CAPSULE PO SCH (09:06)
[2020-02-08 12:00] VITALS: BP 117/56
[2020-02-08 16:47] VITALS: BP 110/63
--- NOTE | 2020-02-08 19:50 | NUR ---
Received patient awake and alert in bed, A/Ox4. No signs of acute distress noted. Patient stated that he is agitated, was requesting Klonopin an hour ago. Administered patients Klonopin and then later on patient apologized saying that he was rude. Patient aware of plan to go to [facility], he is on a Voluntary status. Patient stated "I know I need help and that's why i'm willing to stay here until I get better." Patient incision to right shoulder with sutures are intact. 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 Safety measures initiated. Will continue to monitor.
--- NOTE | 2020-02-08 19:54 | NUR ---
Pt remained stable throughout shift. Kept reinforcing not to touch or scratch right shoulder incision. Had an episode of agitation due to pain medication, but was calm the rest of the shift. No SI, constant monitoring done. Bed locked in lowest position with siderails 2x up.
[2020-02-08 20:20] VITALS: BP 118/75
[2020-02-08] MEDS: LITHIUM CARBONATE CR 450 MG TABLET.SA PO SCH (21:05)
[2020-02-09 00:37] VITALS: BP 103/65
[2020-02-09] MEDS: HYDROCODONE/APAP 5-325MG TABLET PO PRN ×3 (01:51→18:11)
[2020-02-09] MEDS: CLONAZEPAM 1 MG TABLET PO PRN ×3 (03:11→20:05)
[2020-02-09 05:56] VITALS: BP 107/56
[2020-02-09 08:15] VITALS: BP 118/71
[2020-02-09] MEDS: MULTIVITAMINS,THERAPEUTIC TABLET PO SCH (08:54)
[2020-02-09] MEDS: THIAMINE HCL 100 MG TABLET PO SCH (08:54)
[2020-02-09] MEDS: buPROPion XL 150 MG TAB.SR.24H PO SCH (08:55)
[2020-02-09] MEDS: FOLIC ACID 1 MG TABLET PO SCH (08:55)
[2020-02-09] MEDS: LITHIUM CARBONATE 300 MG CAPSULE PO SCH (08:55)
[2020-02-09] MEDS: METOPROLOL TARTRATE 50 MG TABLET PO SCH (08:56)
[2020-02-09 12:00] VITALS: BP_SYST 125; BP_SYST 144; BP_DIAS 66; BP_DIAS 75
[2020-02-09 15:41] VITALS: BP 122/60
--- NOTE | 2020-02-09 18:25 | NUR ---
PATIENT CALM AND COMFORTABLE THROUGH OUT SHIFT WITH NO SIGNS OF DISTRESS; PATIENT WITH STABLE VITAL SIGNS PATIENT MEDICATION COMPLIANT; PATIENT WITH MOMENTS IRRITABILITY PATIENT REDIRECTED. PATIENT TRANSFERRED TO MHU WITH ALL BELONGINGS. REPORT GIVEN TO MHU NURSE.
[2020-02-09 20:00] VITALS: BP 131/82
[2020-02-09] MEDS: LITHIUM CARBONATE CR 450 MG TABLET.SA PO SCH (20:06)
[2020-02-09] MEDS: METOPROLOL TARTRATE 25 MG TABLET PO SCH (20:13)
[2020-02-10] MEDS: HYDROCODONE/APAP 5-325MG TABLET PO PRN ×4 (00:50→20:32)
--- NOTE | 2020-02-10 06:18 | NUR ---
Pt A+Ox3, denies any SI, cooperative with care and staff direction. VS stable, chronic pain effectively controlled with [place] 5/325. C/o anxiety, Klonopin 1mg administered with good effect. Denies any current thoughts of SI, verbally contracts for safety. Pt reports that he is depressed over his chronic pain issues but does but feel like he wants to hurt himself. Pt was educated and encouraged to seek staff iff feeling self injurious. No aggressive behaviors throughout the shift.
[2020-02-10 07:30] VITALS: BP 147/78
[2020-02-10] MEDS: LITHIUM CARBONATE 300 MG CAPSULE PO SCH (07:44)
[2020-02-10] MEDS: THIAMINE HCL 100 MG TABLET PO SCH (08:11)
[2020-02-10] MEDS: MULTIVITAMINS,THERAPEUTIC TABLET PO SCH (08:11)
[2020-02-10] MEDS: FOLIC ACID 1 MG TABLET PO SCH (08:12)
[2020-02-10] MEDS: METOPROLOL TARTRATE 25 MG TABLET PO SCH ×2 (08:15→20:32)
[2020-02-10] MEDS: buPROPion XL 150 MG TAB.SR.24H PO SCH (08:26)
--- NOTE | 2020-02-10 14:46 | NUR ---
Heel Lining Paster Individual Therapy: wool batting worker met with pt for brief counseling to address patient's substance abuse. Patient presents with euthymic mood and brighter affect. Patient stated that he is feeling confident upon discharge to have resources such as [facility] in plan to continue to get therapy and treatment on an outpatient basis. patient states that he is no longer "craving alcohol" and that he does nt want to resort back to it or drink anymore. Sw provided motivational interviewing and more positive reinforcement to continue to stay positive and hopeful. SW emphasized patient's strengths and ability to self-motivate.
--- NOTE | 2020-02-10 16:39 | NUR ---
received patient denies any SI, cooperative with care and staff direction. VS stable, chronic pain effectively controlled with [place] 5/325. Will continue to monitor.
[2020-02-10 16:46] VITALS: BP 110/58
--- NOTE | 2020-02-10 20:00 | NUR ---
Received patient in TV room, no distress noted. A/Ox4. Complains of pain to the right shoulder, knows PRN [place] not due yet. No SOB. Vitals WNL. Ambulates steady.
[2020-02-10 20:11] VITALS: BP 118/74
[2020-02-10] MEDS: LITHIUM CARBONATE CR 450 MG TABLET.SA PO SCH (21:09)
[2020-02-11] MEDS: HYDROCODONE/APAP 5-325MG TABLET PO PRN ×4 (02:42→20:52)
[2020-02-11 07:30] VITALS: BP 140/86
[2020-02-11] MEDS: MULTIVITAMINS,THERAPEUTIC TABLET PO SCH (08:20)
[2020-02-11] MEDS: LITHIUM CARBONATE 300 MG CAPSULE PO SCH (08:20)
[2020-02-11] MEDS: FOLIC ACID 1 MG TABLET PO SCH (08:20)
[2020-02-11] MEDS: THIAMINE HCL 100 MG TABLET PO SCH (08:20)
[2020-02-11] MEDS: METOPROLOL TARTRATE 25 MG TABLET PO SCH ×2 (08:21→20:36)
[2020-02-11] MEDS: buPROPion XL 150 MG TAB.SR.24H PO SCH (09:32)
[2020-02-11 16:01] VITALS: BP 109/68
--- NOTE | 2020-02-11 18:00 | NUR ---
Dr. Valdes removed suture from pt's right shoulder, well tolerated .
[2020-02-11 20:32] VITALS: BP 138/72
[2020-02-11] MEDS: LITHIUM CARBONATE CR 450 MG TABLET.SA PO SCH (20:36)
--- NOTE | 2020-02-11 20:57 | NUR ---
Patient alert/oriented x3, patient denies SI, cooperative with care and staff direction. VS stable, chronic pain effectively controlled with [place] 5/325. Pain to right shoulder 9/10 medication given as ordered.Patient complaint with medication. No aggressive or combative behavior noted will continue to monitor and redirect as needed. Safe environment provided, frequent rounding, and clutter free environment.
[2020-02-12 07:54] VITALS: BP 91/50
[2020-02-12] MEDS: FOLIC ACID 1 MG TABLET PO SCH (08:34)
[2020-02-12] MEDS: THIAMINE HCL 100 MG TABLET PO SCH (08:34)
[2020-02-12] MEDS: METOPROLOL TARTRATE 25 MG TABLET PO SCH ×2 (08:34→20:49)
[2020-02-12] MEDS: LITHIUM CARBONATE 300 MG CAPSULE PO SCH (08:35)
[2020-02-12] MEDS: MULTIVITAMINS,THERAPEUTIC TABLET PO SCH (08:35)
[2020-02-12] MEDS: buPROPion XL 150 MG TAB.SR.24H PO SCH (08:36)
[2020-02-12] MEDS: HYDROCODONE/APAP 5-325MG TABLET PO PRN ×3 (10:40→22:37)
[2020-02-12 13:00] VITALS: BP 121/75
--- NOTE | 2020-02-12 15:07 | NUR ---
Tunnel Mucker Individual Therapy: relay worker met with pt for brief counseling to address patient's substance abuse. Patient is looking forward to being discharged tomorrow and presents goal oriented and motivated with plan to follow up with his treatments. Pt expressed gratitude for this creative services writer for helping him with getting set up with [facility] and being supportive and listening to the patient. This creative services writer validated patient's feelings. Pt was able to verbalize alternate coping skills other than substance use.
[2020-02-12 20:00] VITALS: BP 137/71
--- NOTE | 2020-02-12 20:00 | NUR ---
Patient received into care in activities room watching television quietly. Patient is alert/oriented x3 and is complaining of right should pain as 10/10. All safety and fall precaution measures are in place. Will continue to monitor and assess.
[2020-02-12] MEDS: LITHIUM CARBONATE CR 450 MG TABLET.SA PO SCH (20:49)
[2020-02-13] MEDS: HYDROCODONE/APAP 5-325MG TABLET PO PRN (04:39)
--- NOTE | 2020-02-13 06:21 | NUR ---
Patient slept intermittently throughout night with complaints of right shoulder pain addressed with prescribed analgesics. Patient was compliant with all aspects of care this shift. All nursing needs were met promptly and patient is warm, dry, and comfortable. All safety and fall precautions remain in place.
[2020-02-13 07:30] VITALS: BP 132/69
[2020-02-13] MEDS: FOLIC ACID 1 MG TABLET PO SCH (08:39)
[2020-02-13] MEDS: THIAMINE HCL 100 MG TABLET PO SCH (08:40)
[2020-02-13] MEDS: LITHIUM CARBONATE 300 MG CAPSULE PO SCH (08:40)
[2020-02-13] MEDS: MULTIVITAMINS,THERAPEUTIC TABLET PO SCH (08:40)
[2020-02-13 08:41] VITALS: BP 132/69
[2020-02-13] MEDS: METOPROLOL TARTRATE 25 MG TABLET PO SCH (08:41)
[2020-02-13] MEDS: buPROPion XL 150 MG TAB.SR.24H PO SCH (08:41)
--- NOTE | 2020-02-13 09:03 | NUR ---
SW Discharge Note: Patient will be discharged back home [address] [place] [address] ([phone]). Patient will be given a Taxi Voucher and be provided with Taxi transportation at 11am today. Patient presents alert and oriented times 4. Patient is able to take care of his basic needs. Patient is aware and agreeable with discharge plans. Patient presents with appropriate mood and congruent affect. Patient was provided with a brief substance abuse intervention and referred to [facility] for Intensive Outpatient Program, Konrad Michele (ph:[phone] ext. [phone]; fax: [phone]) [address] [place] [address] and has an appointment scheduled for intake evaluation on Sunday02/16/20 1:30pm. Patient is referred to [facility] [address], [place] [address] ([phone]) for outpatient psychiatric services and has an appointment scheduled on Sunday February 23, 2020 12:00pm for an intake appointment with a director of casework department of the day, then assigned a psychiatrist. Patient is also referred to [facility] [address], [place] [address] ([phone]) for primary care physician follow ups and has an appointment scheduled on February 19, 2020 at 12:45pm.
--- NOTE | 2020-02-13 11:43 | NUR ---
Discharge instructions provided to the patient with verbalized understanding. Discharge papers signed by and given to the patient. Discharge photo taken. All belongings and valuables well accounted for. All needs attended to promptly. Patient remains alert, oriented x 4, not in any form of distress, ambulatory, on room air. Patient denies any suicidal ideation, no hallucination. No complain of any pain or discomfort at this time. Assisted patient safely to the lobby, picked up by i at 11:15AM.
== END 2020-02-13 11:15 | disposition home or self-care (01) | DRG 885 ==
LOC: ER 15:46 → GPS 17:05 → GPSOV3 02-05 16:23 → GPS 02-09 18:05
PROVIDERS: ADMIT Psychiatry & Neurology Psychiatry; ATTEND Internal Medicine
DX: F31.30 Bipolar disorder, current episode depressed, mild or moderate severity, unspecified (principal); R45.851 Suicidal ideations; F10.239 Alcohol dependence with withdrawal, unspecified; Y90.0 Blood alcohol level of less than 20 mg/100 ml; Z91.14 Patient's other noncompliance with medication regimen; E83.42 Hypomagnesemia; I10 Essential (primary) hypertension; M19.90 Unspecified osteoarthritis, unspecified site; E66.9 Obesity, unspecified; Z68.31 Body mass index [BMI] 31.0-31.9, adult; M25.511 Pain in right shoulder
CPT/HCPCS: 36415; 70030-TC; 71045; 82652; 83735; 84100; 84443; 85025; 93005; A4663; G0480

== ENCOUNTER 2021-01-25 15:15 | Inpatient (IN) | payer MEDICARE, OTHER ==
[~2021-01-25] VITALS: Ht 175.3 cm; Wt 102.1 kg
[~2021-01-25 15:15] MED LIST changes: -AMLO5TAB9 PO; -BUPR-96 PO; +CHLORDIAZEPOXIDE PO; -CIPR2.5D11 EACHEYE; +FOLIC ACID PO; -HYDR-4384 PO; -LITH300T3 PO; -LITH450T2 PO; +MULT-594 PO; +ONDA4TAB11 PO; -TEMA15CA PO
[2021-01-25] MEDS ORDERED: ATEN50TA PO (15:46)
[2021-01-25] MEDS ORDERED: SERT50TA PO (15:46)
[2021-01-25] MEDS ORDERED: QUET50TA PO (15:46)
[2021-01-25 15:52] LABS: HEMATOCRIT 45.1 % (36.7-47.1); MEAN CORPUSCULAR HEMOGLOBIN 29.8 uug (23.8-33.4); MEAN CORPUSCULAR VOLUME 89.4 fL (73.0-96.2); PLATELET COUNT (AUTO) 326 K/uL (152-348)
[2021-01-25 15:56] LABS: CARBON DIOXIDE 27 mmol/L (21-32); CHLORIDE 101 mmol/L (98-107); CREATININE 0.9 mg/dL (0.6-1.3); GLUCOSE 110 mg/dL (74-106); POTASSIUM 3.6 mmol/L (3.5-5.1); UREA NITROGEN, BLOOD 12 mg/dL (7-18)
[2021-01-25] MEDS ORDERED: MAG355OR18 PO (15:56)
[2021-01-25 16:02] LABS: ACETAMINOPHEN < 2.0 ug/mL (10-30); ALANINE AMINOTRANSFERASE 43 U/L (16-63); ALKALINE PHOSPHATASE 109 U/L (50-136); ASPARTATE AMINOTRANSFERASE 23 U/L (15-37); BILIRUBIN,DIRECT 0.2 mg/dL (0.0-0.2); BILIRUBIN,TOTAL 0.6 mg/dL (0.2-1.0); ETHANOL < 3 MG/DL (0-0); TOTAL PROTEIN, SERUM 7.3 g/dL (6.4-8.2)
--- NOTE | 2021-01-25 16:03 | NUR ---
PT IS IN ROOM #1B. DR RIOS EVALUATED THE PT.
[2021-01-25 17:32] LABS: *CLARITY,URINE CLEAR (CLEAR); *COLOR,URINE YELLOW (YELLOW)
[2021-01-25 17:33] LABS: *BILIRUBIN,URIN NEGATIVE (NEGATIVE); *BLOOD, URINE TRACE INTACT (NEGATIVE); *KETONES,URINE NEGATIVE (NEGATIVE); *UROBILINOGEN,URINE 0.2 E.U./dl (NORMAL); LEUKOCYTE ESTERASE ,URINE NEGATIVE (NEGATIVE); NITRITE, URINE NEGATIVE (NEGATIVE); UGLUCOSE NEGATIVE (NEGATIVE)
[2021-01-25 17:41] LABS: *AMPHETAMINE, URINE NEGATIVE (NEGATIVE); *CANNABINOID, URINE NEGATIVE (NEGATIVE); *COCCAINE, URINE NEGATIVE (NEGATIVE); *OPIATE, URINE POSITIVE (NEGATIVE); *PHENCYCLIDINE SCREEN,URINE NEGATIVE (NEGATIVE)
--- NOTE | 2021-01-25 17:41 | NUR ---
REPORT WAS GIVEN TO RN MHU. PT WAS TRANSFERED TO MHU ROOM #145B.
[2021-01-25] MEDS ORDERED: MAGNESIUM HYDROXIDE 30 ML LIQUID UDC PO PRN (18:00)
[2021-01-25] MEDS ORDERED: ACETAMINOPHEN 325 MG TABLET PO PRN (18:00)
[2021-01-25 18:27] VITALS: BP 152/93
--- NOTE | 2021-01-25 19:00 | NUR ---
Admission not finished. endorsed to next shift. Pt was cooperative with the questions and answer of admission.
[2021-01-25 20:53] VITALS: BP 155/91
[2021-01-25] MEDS ORDERED: ATENOLOL 50 MG TABLET ONE (23:23)
[2021-01-25] MEDS: ATENOLOL 50 MG TABLET PO SCH (23:36)
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
[2021-01-26] MEDS: CLONAZEPAM 0.5 MG TABLET PO PRN ×2 (03:10→14:06)
--- NOTE | 2021-01-26 06:28 | NUR ---
Patient denies hearing voices at this time.Stated he feels much better. Slept about 7.15 hrs
[2021-01-26 06:46] LABS: ETHANOL < 3 MG/DL (0-0)
[2021-01-26 06:49] LABS: ALANINE AMINOTRANSFERASE 36 U/L (16-63); ALKALINE PHOSPHATASE 99 U/L (50-136); ASPARTATE AMINOTRANSFERASE 22 U/L (15-37); BILIRUBIN,TOTAL 0.7 mg/dL (0.2-1.0); CARBON DIOXIDE 23 mmol/L (21-32); CHLORIDE 103 mmol/L (98-107); CREATININE 0.8 mg/dL (0.6-1.3); GLUCOSE 115 mg/dL (74-106); POTASSIUM 3.6 mmol/L (3.5-5.1); TOTAL PROTEIN, SERUM 6.7 g/dL (6.4-8.2); UREA NITROGEN, BLOOD 11 mg/dL (7-18)
[2021-01-26 07:30] VITALS: BP 153/89
--- NOTE | 2021-01-26 08:40 | NUR ---
Firearms Report: Diamond Merchant completed and submitted a DOJ firearms report for 5150 Danger to Self certifications. A copy of report has been placed in patient chart.
[2021-01-26] MEDS: ATENOLOL 50 MG TABLET PO SCH (09:00)
--- NOTE | 2021-01-26 10:36 | NUR ---
DAJUAN Initial Discharge Plan: Patient was recently residing at [address] [place] [address], [facility] ([phone]). Patient does not want to return home and would like alternate SNF placement upon discharge. Patient does not want any family contacted at this time. DAJUAN will continue to work with patient and MD to ensure a safe and proper discharge plan.
[2021-01-26] MEDS: MAG HYDROX/AL HYDROX/SIMETH 30 ML LIQUID UDC PO PRN (10:51)
--- NOTE | 2021-01-26 10:57 | NUR ---
Brief Substance Abuse Intervention: Patient was provided with a brief substance abuse intervention for alcohol abuse and referred to the following substance abuse programs: [facility] Substance Abuse Self-helpline ([phone]); [facility] [address] [place] [address] ([phone]); [facility] [address] [facility] [address] ([phone]); [facility] ([phone]); [facility] ([phone]); [facility] ([phone]); [facility] ([phone]).
[2021-01-26 16:00] VITALS: BP 135/72
[2021-01-26] MEDS: risperiDONE 0.5 MG TABLET PO SCH ×2 (16:17→20:14)
[2021-01-26] MEDS: LITHIUM CARBONATE 300 MG CAPSULE PO SCH ×2 (16:17→20:14)
[2021-01-26] MEDS: SERTRALINE HCL 50 MG TABLET PO SCH (16:17)
--- NOTE | 2021-01-26 16:17 | NUR ---
DAJUAN Family Contact: Patient requested this social worker assistant to call his son, Keegan Vides ([phone]) and inform his that he is at [facility] and the discharge plan to a SNF upon discharge. DAJUAN spoke with Keegan Vides ([phone]) and informed of patient's admission and discharge plan.
--- NOTE | 2021-01-26 17:41 | NUR ---
patient is alert and oriented x3 ,compliant with all po medication. attendance and participated in group activity.
[2021-01-26 20:24] VITALS: BP 132/77
[2021-01-26] MEDS: TEMAZEPAM 7.5 MG CAPSULE PO PRN (23:31)
--- NOTE | 2021-01-27 06:28 | NUR ---
Pt slept a total of 7 hours. Denies pain or SOB. Denies SI or HI. Compliant with all ordered medications, and tolerated well. Pt cooperative and pleasant. Safety and comfort provided. No other issues or concerns at this time, will endorse to day shift.
[2021-01-27 07:30] VITALS: BP 140/75
[2021-01-27] MEDS: ATENOLOL 50 MG TABLET PO SCH (08:17)
[2021-01-27] MEDS: SERTRALINE HCL 50 MG TABLET PO SCH (08:17)
[2021-01-27] MEDS: LITHIUM CARBONATE 300 MG CAPSULE PO SCH ×2 (08:17→20:32)
[2021-01-27] MEDS: risperiDONE 0.5 MG TABLET PO SCH ×2 (08:17→20:32)
[2021-01-27] MEDS: CLONAZEPAM 0.5 MG TABLET PO PRN ×3 (08:22→20:32)
[2021-01-27] MEDS: MAG HYDROX/AL HYDROX/SIMETH 30 ML LIQUID UDC PO PRN (12:09)
[2021-01-27 16:00] VITALS: BP 104/65
--- NOTE | 2021-01-27 16:00 | NUR ---
Gps/Supervisor Logging- Had been cooperative with the staff providing care, meds. compliant, making her needs known to staff . Stayed in the activity room , watching TV. . safety reviewed
[2021-01-27 20:19] VITALS: BP 132/72
[2021-01-27] MEDS: TEMAZEPAM 7.5 MG CAPSULE PO PRN (21:51)
[2021-01-28] MEDS: CLONAZEPAM 0.5 MG TABLET PO PRN ×3 (04:09→14:27)
--- NOTE | 2021-01-28 05:57 | NUR ---
Pt slept for 5 hours; had taken klonopin twice; good appetite; needs attended; safety maintained
[2021-01-28] MEDS: FENOFIBRATE NANOCRYSTALLIZED 48 MG TABLET PO SCH (08:11)
[2021-01-28] MEDS: SERTRALINE HCL 50 MG TABLET PO SCH (08:12)
[2021-01-28] MEDS: LITHIUM CARBONATE 300 MG CAPSULE PO SCH ×2 (08:12→20:15)
[2021-01-28] MEDS: ATENOLOL 50 MG TABLET PO SCH (08:12)
[2021-01-28] MEDS: risperiDONE 0.5 MG TABLET PO SCH ×2 (08:12→20:15)
[2021-01-28 08:45] VITALS: BP 111/64
--- NOTE | 2021-01-28 09:51 | NUR ---
DAJUAN SNF Referral: DAJUAN faxed patient's referral packet to the following facilities: [address] [address] (P: [phone] F: [phone]) [facility] to [facility]. The [address] [address] (P: [phone] F: [phone]) attention to [facility]. Addendum: 01/28/21 at 1251 by LOGAN RICKS DAJUAN Spoke with [facility] from The [address] [address] (P: [phone] F: [phone]) who stated they can accept the patient for placement upon discharge.
[2021-01-28] MEDS: MAG HYDROX/AL HYDROX/SIMETH 30 ML LIQUID UDC PO PRN ×2 (17:06→17:08)
[2021-01-28 17:10] VITALS: BP 130/80
[2021-01-28 20:18] VITALS: BP 112/66
[2021-01-28] MEDS: TEMAZEPAM 7.5 MG CAPSULE PO PRN (22:15)
[2021-01-29] MEDS: CLONAZEPAM 0.5 MG TABLET PO PRN ×3 (04:04→20:18)
--- NOTE | 2021-01-29 04:10 | NUR ---
patient c/o anxiety. Klonopin 0.5 mg po given.
--- NOTE | 2021-01-29 05:10 | NUR ---
GPS: RESTING IN BED COMFORTABLY. PRN FOR ANXIETY. EFFECTIVE.
--- NOTE | 2021-01-29 05:45 | NUR ---
GPS: Remain calm and cooperative. Denies pain or SOB. Denies SI or HI. Compliant with all ordered medications, and tolerated well. Safety and comfort provided. No other behavior noted at this time. resting in bed comfortably.
[2021-01-29] MEDS: PANTOPRAZOLE SODIUM 40 MG TABLET.DR PO SCH (06:14)
--- NOTE | 2021-01-29 06:19 | NUR ---
slept 6.45 hrs through the night.
--- NOTE | 2021-01-29 07:30 | NUR ---
received patient AOx4, patient isolative , patient verbalizes of wanting to hurt himself , patient denies SI and HI, patient compliant with medication, no sign of distress, on monitoring [id number]
[2021-01-29 07:58] VITALS: BP 127/69
[2021-01-29] MEDS: LITHIUM CARBONATE 300 MG CAPSULE PO SCH ×2 (08:53→20:18)
[2021-01-29] MEDS: risperiDONE 0.5 MG TABLET PO SCH ×3 (08:53→20:18)
[2021-01-29] MEDS: ATENOLOL 50 MG TABLET PO SCH (08:54)
[2021-01-29] MEDS: FENOFIBRATE NANOCRYSTALLIZED 48 MG TABLET PO SCH (08:54)
[2021-01-29] MEDS ORDERED: SERTRALINE HCL 50 MG TABLET PO SCH (09:00)
[2021-01-29 16:50] VITALS: BP 119/68
--- NOTE | 2021-01-29 19:13 | NUR ---
patient been calm cooperative, no sign of any distress, patient redirectable, endorsed to next shift
[2021-01-29 19:53] VITALS: BP 132/72
[2021-01-30] MEDS: CLONAZEPAM 0.5 MG TABLET PO PRN ×3 (04:23→20:20)
[2021-01-30] MEDS: PANTOPRAZOLE SODIUM 40 MG TABLET.DR PO SCH (05:56)
[2021-01-30 07:30] VITALS: BP 131/67
--- NOTE | 2021-01-30 07:30 | NUR ---
Received patient sitting on the kinesiology internship of the bed. Patient is calm and cooperative at this time. Patient is DNR/DNI. No sign of distress at this time. Patient reports hearing voices. Safety measures are in place. Will continue to monitor.
[2021-01-30] MEDS: FENOFIBRATE NANOCRYSTALLIZED 48 MG TABLET PO SCH (08:50)
[2021-01-30] MEDS: LITHIUM CARBONATE 300 MG CAPSULE PO SCH ×2 (08:50→20:21)
[2021-01-30] MEDS: ATENOLOL 50 MG TABLET PO SCH (08:50)
[2021-01-30] MEDS: risperiDONE 0.5 MG TABLET PO SCH (08:50)
[2021-01-30] MEDS ORDERED: SERTRALINE HCL 50 MG TABLET PO SCH (09:00)
[2021-01-30] MEDS: risperiDONE 1 MG TABLET PO SCH ×2 (12:36→20:20)
[2021-01-30] MEDS: OXCARBAZEPINE 150 MG TABLET PO SCH ×2 (12:38→17:24)
[2021-01-30] MEDS ORDERED: risperiDONE 0.5 MG TABLET PO SCH (13:00)
[2021-01-30 15:20] VITALS: BP 102/45
--- NOTE | 2021-01-30 18:48 | NUR ---
Pt sitting in the recreation room. No sign of distress noted. Patient was compliant with medication. Patient is still complaining of hearing voices. Vital signs are within normal limits. Safety measures implemented. Will endorse to the oncoming nurse.
[2021-01-30 20:21] VITALS: BP 107/62
[2021-01-30] MEDS: TEMAZEPAM 7.5 MG CAPSULE PO PRN (21:36)
[2021-01-31] MEDS: CLONAZEPAM 0.5 MG TABLET PO PRN ×4 (04:47→22:00)
[2021-01-31] MEDS: PANTOPRAZOLE SODIUM 40 MG TABLET.DR PO SCH (07:02)
[2021-01-31 07:30] VITALS: BP 133/65
[2021-01-31] MEDS: LITHIUM CARBONATE 300 MG CAPSULE PO SCH ×2 (09:03→20:20)
[2021-01-31] MEDS: risperiDONE 1 MG TABLET PO SCH ×3 (09:03→20:20)
[2021-01-31] MEDS: OXCARBAZEPINE 150 MG TABLET PO SCH ×3 (09:04→16:44)
[2021-01-31] MEDS: ATENOLOL 50 MG TABLET PO SCH (09:04)
[2021-01-31] MEDS: FENOFIBRATE NANOCRYSTALLIZED 48 MG TABLET PO SCH (09:05)
--- NOTE | 2021-01-31 10:23 | NUR ---
Court Hearing: Patient's court hearing for 5250 was today and it was upheld for GD and danger to self.
[2021-01-31 15:35] VITALS: BP 100/60
[2021-01-31 20:18] VITALS: BP 112/62
[2021-02-01] MEDS: CLONAZEPAM 0.5 MG TABLET PO PRN ×4 (04:50→20:06)
[2021-02-01] MEDS: PANTOPRAZOLE SODIUM 40 MG TABLET.DR PO SCH (06:08)
--- NOTE | 2021-02-01 06:19 | NUR ---
PT SLEPT 7 H. PT IN NO ACUTE DISTRESS. VITAL SIGNS WITHIN NORMAL LIMIT. PRESCRIBED MEDICATION GIVEN AND PT TOLERATED IT WELL. PT GIVEN KLONOPIN 0.5mg PRN AT 2200Hand 0450h FOR ANXIETY. PT TOLERATED IT WELL. PT COOPERATIVE WITH CARE. PT STABLE. SAFETY AND COMFORT PROVIDED. ALL NEEDS ARE MET. WILL ENDORSE TO INCOMING NURSE FOR CONTINUITY OF CARE.
[2021-02-01 07:30] VITALS: BP 112/58
[2021-02-01] MEDS: LITHIUM CARBONATE 300 MG CAPSULE PO SCH (08:18)
[2021-02-01] MEDS: risperiDONE 1 MG TABLET PO SCH ×3 (08:18→20:06)
[2021-02-01] MEDS: FENOFIBRATE NANOCRYSTALLIZED 48 MG TABLET PO SCH (08:18)
[2021-02-01] MEDS: OXCARBAZEPINE 150 MG TABLET PO SCH ×3 (08:18→16:51)
[2021-02-01] MEDS: ATENOLOL 50 MG TABLET PO SCH (08:19)
[2021-02-01 15:24] VITALS: BP 100/50
[2021-02-01] MEDS: TAMSULOSIN HCL 0.4 MG CAP.SR.24H PO SCH (20:06)
[2021-02-01 20:10] VITALS: BP 95/50
[2021-02-02] MEDS: CLONAZEPAM 0.5 MG TABLET PO PRN ×3 (03:53→23:06)
[2021-02-02] MEDS: PANTOPRAZOLE SODIUM 40 MG TABLET.DR PO SCH (06:07)
[2021-02-02 07:30] VITALS: BP 116/74
[2021-02-02] MEDS: FENOFIBRATE NANOCRYSTALLIZED 48 MG TABLET PO SCH (08:18)
[2021-02-02] MEDS: risperiDONE 1 MG TABLET PO SCH ×2 (08:18→20:58)
[2021-02-02] MEDS: LITHIUM CARBONATE 300 MG CAPSULE PO SCH ×3 (08:18→16:58)
[2021-02-02] MEDS: ATENOLOL 50 MG TABLET PO SCH (08:20)
[2021-02-02 16:00] VITALS: BP 126/77
[2021-02-02 20:22] VITALS: BP 110/60
[2021-02-02] MEDS: TEMAZEPAM 7.5 MG CAPSULE PO PRN (20:57)
[2021-02-02] MEDS: TAMSULOSIN HCL 0.4 MG CAP.SR.24H PO SCH (20:57)
[2021-02-03] MEDS: CLONAZEPAM 0.5 MG TABLET PO PRN ×4 (05:05→21:00)
--- NOTE | 2021-02-03 05:36 | NUR ---
Shift Note: slept a total of 6 hours no signs distres noted. pt requested klonopin 0.5mg twice during shift for anxiety. pt monitor as ordered for falls prevention and other needs pt may have will endorse to am nurse.
[2021-02-03] MEDS: PANTOPRAZOLE SODIUM 40 MG TABLET.DR PO SCH (06:20)
[2021-02-03 07:30] VITALS: BP 108/57
[2021-02-03] MEDS: ATENOLOL 50 MG TABLET PO SCH (09:00)
[2021-02-03] MEDS: FENOFIBRATE NANOCRYSTALLIZED 48 MG TABLET PO SCH (10:18)
[2021-02-03] MEDS: risperiDONE 1 MG TABLET PO SCH ×2 (10:18→21:00)
[2021-02-03] MEDS: LITHIUM CARBONATE 300 MG CAPSULE PO SCH ×3 (10:19→17:38)
[2021-02-03 16:00] VITALS: BP 133/75
[2021-02-03 20:17] VITALS: BP 115/66
[2021-02-03] MEDS: TAMSULOSIN HCL 0.4 MG CAP.SR.24H PO SCH (21:00)
[2021-02-03] MEDS: TEMAZEPAM 7.5 MG CAPSULE PO PRN (21:00)
--- NOTE | 2021-02-03 22:56 | NUR ---
Pt in his room most of time no c/o pain given klonopin and restoril for sleep now pt is asleep was given medication as ordered no signs of adverse reaction from medication pt is calm and cooperative. no suicide ideation voice will continue to monitor.
[2021-02-04] MEDS: CLONAZEPAM 0.5 MG TABLET PO PRN ×4 (04:13→18:23)
[2021-02-04] MEDS: PANTOPRAZOLE SODIUM 40 MG TABLET.DR PO SCH (06:24)
[2021-02-04 07:30] VITALS: BP 108/58
[2021-02-04] MEDS: SERTRALINE HCL 100 MG TABLET PO SCH (09:29)
[2021-02-04] MEDS: risperiDONE 1 MG TABLET PO SCH ×2 (09:30→20:19)
[2021-02-04] MEDS: LITHIUM CARBONATE 300 MG CAPSULE PO SCH ×3 (09:30→18:22)
[2021-02-04] MEDS: ATENOLOL 50 MG TABLET PO SCH (09:31)
[2021-02-04] MEDS: FENOFIBRATE NANOCRYSTALLIZED 48 MG TABLET PO SCH (09:32)
[2021-02-04 16:37] VITALS: BP 151/68
[2021-02-04] MEDS: TAMSULOSIN HCL 0.4 MG CAP.SR.24H PO SCH (20:20)
[2021-02-04 20:22] VITALS: BP 135/93
[2021-02-05] MEDS: CLONAZEPAM 0.5 MG TABLET PO PRN ×5 (05:05→21:08)
--- NOTE | 2021-02-05 05:38 | NUR ---
PATIENT ALERT ORIENTED, STAYED IN HIS ROOM MOST OF THE NIGHT, NO COMPLAIN OF PAIN. PATIENT CALM AND COOPERATIVE WITH CARE, PATIENT HAS NO VERBALIZATION OF SI. PATIENT SLEPT 6:15, AND ASKED FOR KLONOPIN FOR ANXIETY, CONT TO MONITOR.
[2021-02-05] MEDS: PANTOPRAZOLE SODIUM 40 MG TABLET.DR PO SCH (06:10)
[2021-02-05 08:06] VITALS: BP 108/65
[2021-02-05] MEDS: LITHIUM CARBONATE 300 MG CAPSULE PO SCH ×3 (09:12→17:46)
[2021-02-05] MEDS: risperiDONE 1 MG TABLET PO SCH (09:12)
[2021-02-05] MEDS: SERTRALINE HCL 100 MG TABLET PO SCH (09:12)
[2021-02-05] MEDS: FENOFIBRATE NANOCRYSTALLIZED 48 MG TABLET PO SCH (09:12)
[2021-02-05] MEDS: ATENOLOL 50 MG TABLET PO SCH (09:13)
--- NOTE | 2021-02-05 16:01 | NUR ---
UP AND AMBULATORY UP AND DOWN BACK AND FORTH AT TIMES HE IS IN THE D/ROOM WATCHING THE TV HE IS COMPLIANT WITH MEDICATIONS AND CARE HE IS REQUESTING FOR HIS PRN KLONOPIN ALMOST ROUTINELY EVERY 4 HOURS GIVEN ORDERED PATIENT ENCOURAGED TO RELAX WILL CONTINUE TO PROVIDE SAFE AND THERAPEUTIC ENVIRONMENT AT ALL TIMES WILL CONTINUE TO OBSERVE.
[2021-02-05 16:46] VITALS: BP 99/66
--- NOTE | 2021-02-05 18:27 | NUR ---
CONTINUE TO REQUEST KLONOPIN EVERY FOUR HOURS AND WHEN ASKED HOW HE FELT REFUSED TO TELL ME STATED THAT I WILL NOT UNDERSTAND SO ENCOURAGED HIM TO AT LEAST TELL HIS DOCTOR TOMORROW AND HE STATED OKAY HE WILL
[2021-02-05] MEDS: TEMAZEPAM 7.5 MG CAPSULE PO PRN (21:08)
[2021-02-05] MEDS: risperiDONE 2 MG TABLET PO SCH (21:08)
[2021-02-05] MEDS: TAMSULOSIN HCL 0.4 MG CAP.SR.24H PO SCH (21:08)
[2021-02-06] MEDS: CLONAZEPAM 0.5 MG TABLET PO PRN ×5 (04:35→21:09)
[2021-02-06] MEDS: PANTOPRAZOLE SODIUM 40 MG TABLET.DR PO SCH (06:04)
[2021-02-06 07:30] VITALS: BP 125/73
[2021-02-06] MEDS: risperiDONE 2 MG TABLET PO SCH ×2 (08:25→20:10)
[2021-02-06] MEDS: LITHIUM CARBONATE 300 MG CAPSULE PO SCH ×3 (08:25→16:55)
[2021-02-06] MEDS: SERTRALINE HCL 100 MG TABLET PO SCH (08:25)
[2021-02-06] MEDS: FENOFIBRATE NANOCRYSTALLIZED 48 MG TABLET PO SCH (08:26)
[2021-02-06] MEDS: ATENOLOL 50 MG TABLET PO SCH (08:26)
--- NOTE | 2021-02-06 08:31 | NUR ---
C/O FEELIN ANXIOUS AND REQUESTED FOR KLONOPIN GIVEN ORDERED ALERT AND ORIENTED COMPLIANT WITH MEDICATIONS AND CARE WILL CONTINUE TO OBSERVE.
[2021-02-06 16:00] VITALS: BP 112/58
--- NOTE | 2021-02-06 18:00 | NUR ---
RESTING WALKING UP AND DOWN REQUESTED FOR KLONOPIN GIVEN ORDERED AND EFFECTIVE NOT IN DISTRESS WILL CONTINUE TO OBSERVE.
[2021-02-06 20:00] VITALS: BP 104/50
[2021-02-06] MEDS: TAMSULOSIN HCL 0.4 MG CAP.SR.24H PO SCH (20:10)
[2021-02-07] MEDS: CLONAZEPAM 0.5 MG TABLET PO PRN ×4 (05:24→18:08)
[2021-02-07] MEDS: PANTOPRAZOLE SODIUM 40 MG TABLET.DR PO SCH (06:17)
[2021-02-07 07:30] VITALS: BP_SYST 115; BP_SYST 119; BP_DIAS 63; BP_DIAS 91
[2021-02-07] MEDS: SERTRALINE HCL 100 MG TABLET PO SCH (08:21)
[2021-02-07] MEDS: FENOFIBRATE NANOCRYSTALLIZED 48 MG TABLET PO SCH (08:21)
[2021-02-07] MEDS: risperiDONE 2 MG TABLET PO SCH ×2 (08:21→20:18)
[2021-02-07] MEDS: LITHIUM CARBONATE 300 MG CAPSULE PO SCH ×3 (08:21→16:37)
[2021-02-07] MEDS: ATENOLOL 50 MG TABLET PO SCH (08:22)
[2021-02-07 15:02] VITALS: BP 115/76
--- NOTE | 2021-02-07 18:36 | NUR ---
received Pt is awake but in his room and took all of his morning medication, denies any HI/HI no signsof respiratory distress noted.denies any pain or discomfort. asked Klonopin 0.5 mg q4 hrs ,Will continue to monitor for safety.
[2021-02-07 20:00] VITALS: BP 114/63
[2021-02-07] MEDS: TAMSULOSIN HCL 0.4 MG CAP.SR.24H PO SCH (20:18)
[2021-02-07] MEDS: TEMAZEPAM 7.5 MG CAPSULE PO PRN (22:32)
[2021-02-08] MEDS: CLONAZEPAM 0.5 MG TABLET PO PRN ×4 (04:37→16:36)
[2021-02-08] MEDS: PANTOPRAZOLE SODIUM 40 MG TABLET.DR PO SCH (06:05)
[2021-02-08 07:30] VITALS: BP 113/81
[2021-02-08] MEDS: FENOFIBRATE NANOCRYSTALLIZED 48 MG TABLET PO SCH (08:25)
[2021-02-08] MEDS: LITHIUM CARBONATE 300 MG CAPSULE PO SCH ×3 (08:25→16:36)
[2021-02-08] MEDS: ATENOLOL 50 MG TABLET PO SCH (08:25)
[2021-02-08] MEDS: SERTRALINE HCL 100 MG TABLET PO SCH (08:26)
[2021-02-08] MEDS: risperiDONE 2 MG TABLET PO SCH ×2 (08:26→20:36)
[2021-02-08 15:00] VITALS: BP 126/73
[2021-02-08] MEDS: TAMSULOSIN HCL 0.4 MG CAP.SR.24H PO SCH (20:36)
[2021-02-09] MEDS: CLONAZEPAM 0.5 MG TABLET PO PRN ×2 (05:21→13:28)
[2021-02-09] MEDS: PANTOPRAZOLE SODIUM 40 MG TABLET.DR PO SCH (06:21)
[2021-02-09 07:30] VITALS: BP 131/69
--- NOTE | 2021-02-09 08:16 | NUR ---
DAJUAN Discharge Note: Patient will be [facility] today to [facility] facility [facility] on [address] [address] (P: [phone] F: [phone]). Patient will be provided ambulance transportation at 1PM. DAJUAN spoke with Massiel Land Management Forester at the facility who confirmed patient is accepted today. Patient is alert and oriented x4. Patient presents with euthymic mood and congruent affect. Patient denies suicidal or homicidal ideation. Patient is unable to plan for self-care at this time but is willing to accept care provided for him at the facility. Patients son, Keegan Art ([phone]) is aware and agreeable with discharge plan. Patient will be following up with Dr. Sears psychiatrist and Dr. Nogueira pharmacy sales assistant at [facility] on [address] [address] (P: [phone] F: [phone]). Patient was provided referrals to the following substance abuse programs for substance abuse (alcohol): [facility] Substance Abuse Self-helpline ([phone]); [facility] [address] [place] [address] ([phone]); [place] [id number] [facility] [place] [address] ([phone]); [facility] ([phone]); [facility] ([phone]); [facility] ([phone]); [facility] ([phone]).
[2021-02-09] MEDS: risperiDONE 2 MG TABLET PO SCH (09:19)
[2021-02-09 09:20] VITALS: BP 131/69
[2021-02-09] MEDS: FENOFIBRATE NANOCRYSTALLIZED 48 MG TABLET PO SCH (09:20)
[2021-02-09] MEDS: SERTRALINE HCL 100 MG TABLET PO SCH (09:20)
[2021-02-09] MEDS: ATENOLOL 50 MG TABLET PO SCH (09:20)
[2021-02-09] MEDS: LITHIUM CARBONATE 300 MG CAPSULE PO SCH ×2 (09:20→12:27)
--- NOTE | 2021-02-09 14:00 | NUR ---
Pt AAOx3-4. VSS. Denies any pain/discomfort. Denies SI/HI. Compliant with care and medication. Discharged to [facility] on [address].
== END 2021-02-09 17:10 | DRG 885 ==
LOC: ER 15:15 → GPS 16:54
PROVIDERS: ADMIT Psychiatry & Neurology Psychiatry; ATTEND Internal Medicine
DX: F25.9 Schizoaffective disorder, unspecified (principal); R45.851 Suicidal ideations; Z85.07 Personal history of malignant neoplasm of pancreas; Z20.822 Contact with and (suspected) exposure to COVID-19; I10 Essential (primary) hypertension; N40.0 Benign prostatic hyperplasia without lower urinary tract symptoms; F10.21 Alcohol dependence, in remission
CPT/HCPCS: 36415; 71045; 84153; 85025; 93005; A4663; G0480